=== PATIENT | male | born 1960 | race Caucasian/White ===

== ENCOUNTER 2016-09-13 08:23 | Inpatient (IN) | payer OTHER ==
[2016-09-13 08:43] LABS: Basophils % (Auto) 0.3 % (0.0-1.8); Eosinophils % (Auto) 0.4 % (0.0-4.3); Hematocrit 41.3 % (35.5-45.6); Hemoglobin 12.9 gm/dl (11.8-15.2); Mean Corpuscular HGB Conc 31 % (32-34); Mean Corpuscular Volume 73 fl (84-94); Platelet Count 313 K/mm3 (140-440); Red Blood Count 5.68 M/mm3 (3.65-5.03); Red Cell Distribution Width 17.6 % (13.2-15.2); White Blood Count 8.7 K/mm3 (4.5-11.0)
--- NOTE | 2016-09-13 08:45 | Cat Scan Report ---
HEAD CT WITHOUT CONTRAST INDICATION: Neurologic deficits less than 6 hours or symptoms present upon awakening. 98N. COMPARISON: None similar at this institution. FINDINGS: Noncontrast head CT demonstrates symmetric, age-appropriate ventricles and sulci without definite acute infarct, hemorrhage, mass effect or midline shift. Mild periventricular hypodensities. Few white matter ischemic changes in the right frontal lobe extending into the centrum semiovale favored old. No abnormal extra-axial fluid collections. Posterior fossa structures and basilar cisterns are within normal limits. Mild bilateral ethmoid sinusitis. Slight right sphenoid sinus mucosal thickening anteriorly. Clear remainder imaged paranasal sinuses and mastoid air cells. Atherosclerotic ICA calcifications. Few radiopaque dental material and missing teeth. Cervical spondylosis. Intact calvarium. Normal scalp soft tissues. CONCLUSION: No acute intracranial CT abnormality with few other findings, as above. MRI is more sensitive for detection of acute infarct and may be useful for further evaluation in the setting of a focal neurologic deficit. I phoned the above results to Dr. Briceño in the ER, 8:42 AM, 09/13/2016. Thank you for the opportunity to participate in this patient's care.
[2016-09-13 08:51] LABS: Anion Gap 21 mmol/L; Blood Urea Nitrogen 20 mg/dL (9-20); Calcium 9.2 mg/dL (8.4-10.2); Carbon Dioxide 22 mmol/L (22-30); Chloride 100.5 mmol/L (98-107); Glucose 90 mg/dL (75-100); Potassium 3.9 mmol/L (3.6-5.0); Sodium 140 mmol/L (137-145)
[2016-09-13 08:55] LABS: INR 1.04 (0.87-1.13); Mean Corpuscular Hemoglobin 23 pg (28-32); Partial Thromboplastin Time 24.9 Sec. (24.2-36.6)
[2016-09-13] MEDS ORDERED: APRESOLINE IV ONE (09:12)
--- NOTE | 2016-09-13 09:47 | Emergency Department Report ---
ED Neuro Deficit HPI - General Chief Complaint: Neuro Symptoms/Deficit Stated Complaint: POSSIBLE CVA Time Seen by Provider: 09/13/16 08:42 Source: patient, EMS Mode of arrival: Stretcher Limitations: Physical Limitation - History of Present Illness -: Gradual Location: speech, left arm Presenting Symptoms: Present: Weak/Paralyzed One Side History of same: Yes Place: home Severity: severe Quality: weak Improves With: none Worsens With: none On Anticoagulants: No Context: gradual onset Associated Symptoms: denies other symptoms Treatments Prior to Arrival: none - Related Data Home Medications: Home Medications Medication Instructions Recorded Confirmed Last Taken Aspirin [Aspirin BABY CHEW TAB] 81 mg PO QDAY 09/13/16 09/13/16 Unknown Olmesartan (Nf) [Benicar (Nf)] 5 mg PO QDAY 09/13/16 09/13/16 Unknown Allergies/Adverse Reactions: Allergies Allergy/AdvReac Type Severity Reaction Status Date / Time No Known Allergies Allergy Verified 09/13/16 09:38 ED Review of Systems ROS: Stated complaint: POSSIBLE CVA Other details as noted in HPI Comment: All other systems reviewed and negative Constitutional: no symptoms reported Neurological: weakness (left sided) ED Past Medical Hx - Past Medical History Hx Hypertension: Yes - Social History Smoking Status: Unknown if ever smoked - Medications Home Medications: Home Medications Medication Instructions Recorded Confirmed Last Taken Type Aspirin [Aspirin BABY CHEW TAB] 81 mg PO QDAY 09/13/16 09/13/16 Unknown History Olmesartan (Nf) [Benicar (Nf)] 5 mg PO QDAY 09/13/16 09/13/16 Unknown History ED Neuro Physical Exam - General Limitations: Physical Limitation Suspected Stroke: Yes - Head Head exam: Present: atraumatic - Eye Eye exam: Present: normal appearance Pupils: Present: normal accommodation - ENT ENT exam: Present: normal exam - Neck Neck exam: Present: normal inspection - Cardiovascular Cardiovascular Exam: Present: regular rate - GI/Abdominal GI/Abdominal exam: Present: soft - Neurological Exam Neurological exam: Present: other (left-sided weakness) - NIHSS Assessment Interval: Baseline 1a. Level of Consciousness: alert 1b. LOC Questions: answers correctly 1c. LOC Commands: performs tasks correctly 2. Best Gaze: normal 3. Visual: no visual loss 4. Facial Palsy: normal symmetrical movement 5b. Motor Arm Right: no drift 5a. Motor Arm Left: drift 6a. Motor Leg Left: drift 6b. Motor Leg Right: no drift 7. Limb Ataxia: absent 8. Sensory: normal 9. Best Language: no aphasia 10. Dysarthria: normal 11. Extinction/Inattention: no abnormality Total Score: 2 Stroke Severity: Minor Stroke - Psychiatric Psychiatric exam: Present: normal affect ED Course Vital Signs 09/13/16 09/13/16 09/13/16 08:38 08:48 08:49 Temperature Pulse Rate 88 Respiratory 22 22 Rate Blood Pressure 240/120 Blood Pressure 228/115 [Right] O2 Sat by Pulse Oximetry 09/13/16 09/13/16 09/13/16 09:08 09:15 09:54 Temperature 98.1 F Pulse Rate 92 H 86 92 H Respiratory 24 20 Rate Blood Pressure 208/118 Blood Pressure 246/122 168/82 [Right] O2 Sat by Pulse 100 100 Oximetry - Lab Data Result diagrams: 09/13/16 08:20 09/13/16 08:20 Lab Results 09/13/16 09/13/16 09/13/16 Range/Units 08:20 08:20 08:20 WBC 8.7 (4.5-11.0) K/mm3 RBC 5.68 H (3.65-5.03) M/mm3 Hgb 12.9 (11.8-15.2) gm/dl Hct 41.3 (35.5-45.6) % MCV 73 L (84-94) fl MCH 23 L (28-32) pg MCHC 31 L (32-34) % RDW 17.6 H (13.2-15.2) % Plt Count 313 (140-440) K/mm3 Lymph % (Auto) 8.9 L (13.4-35.0) % [place] % (Auto) 6.2 (0.0-7.3) % Eos % (Auto) 0.4 (0.0-4.3) % Baso % (Auto) 0.3 (0.0-1.8) % Lymph # 0.8 L (1.2-5.4) K/mm3 [place] # 0.5 (0.0-0.8) K/mm3 Eos # 0.0 (0.0-0.4) K/mm3 Baso # 0.0 (0.0-0.1) K/mm3 Seg Neutrophils % 84.2 H (40.0-70.0) % Seg Neutrophils # 7.3 (1.8-7.7) K/mm3 PT 13.5 (12.2-14.9) Sec. INR 1.04 (0.87-1.13) APTT 24.9 (24.2-36.6) Sec. Thrombin Time (15.1-19.6) Sec. Sodium 140 (137-145) mmol/L Potassium 3.9 (3.6-5.0) mmol/L Chloride 100.5 (98-107) mmol/L Carbon Dioxide 22 (22-30) mmol/L Anion Gap 21 mmol/L BUN 20 (9-20) mg/dL Creatinine 1.0 (0.8-1.5) mg/dL Estimated GFR > 60 ml/min BUN/Creatinine Ratio 20.00 % Glucose 90 (75-100) mg/dL POC Glucose (70-105) Calcium 9.2 (8.4-10.2) mg/dL Troponin T < 0.010 (0.00-0.029) ng/mL 09/13/16 09/13/16 Range/Units 08:20 08:43 WBC (4.5-11.0) K/mm3 RBC (3.65-5.03) M/mm3 Hgb (11.8-15.2) gm/dl Hct (35.5-45.6) % MCV (84-94) fl MCH (28-32) pg MCHC (32-34) % RDW (13.2-15.2) % Plt Count (140-440) K/mm3 Lymph % (Auto) (13.4-35.0) % [place] % (Auto) (0.0-7.3) % Eos % (Auto) (0.0-4.3) % Baso % (Auto) (0.0-1.8) % Lymph # (1.2-5.4) K/mm3 [place] # (0.0-0.8) K/mm3 Eos # (0.0-0.4) K/mm3 Baso # (0.0-0.1) K/mm3 Seg Neutrophils % (40.0-70.0) % Seg Neutrophils # (1.8-7.7) K/mm3 PT (12.2-14.9) Sec. INR (0.87-1.13) APTT (24.2-36.6) Sec. Thrombin Time 15.3 (15.1-19.6) Sec. Sodium (137-145) mmol/L Potassium (3.6-5.0) mmol/L Chloride (98-107) mmol/L Carbon Dioxide (22-30) mmol/L Anion Gap mmol/L BUN (9-20) mg/dL Creatinine (0.8-1.5) mg/dL Estimated GFR ml/min BUN/Creatinine Ratio % Glucose (75-100) mg/dL POC Glucose 96 (70-105) Calcium (8.4-10.2) mg/dL Troponin T (0.00-0.029) ng/mL Critical care attestation.: If time is entered above; I have spent that time in minutes in the direct care of this critically ill patient, excluding procedure time. ED Disposition Clinical Impression: CVA (cerebral vascular accident) Disposition: DC-09 OP ADMIT IP TO THIS HOSP Is pt being admited?: Yes Does the pt Need Aspirin: No Condition: Stable
--- NOTE | 2016-09-13 09:48 | Admit Criteria Form ---
Admission Criteria Documentation: STROKE: ISCHEMIC Clinical Indications for Admission to Inpatient Care (Place 'X' for any and all applicable criteria): Admission is indicated for ANY ONE of the following(1)(2)(3)(4): [X]I. Acute stroke Extended stay beyond goal length of stay may be needed for(1)(2) [ ]a) Major deficit or clinical deterioration [ ]b) Hospital-acquired infection (eg, urinary tract infection, pneumonia) [ ]c) Embolic cause of stroke [ ]d) Venous thromboembolism(9) [ ]e) Seizures [ ]f) Bleeding (eg, cerebral) [ ]g) Increased intracranial pressure [ ]h) Comorbidities [ ]i) Surgical intervention The original [facility] content created by [employer] has been revised. The portions of the content which have been revised are identified through the use of italic text or in bold, and [facility] has neither reviewed nor approved the modified material. All other unmodified content is copyright [facility]. Please see references footnoted in the original [facility] edition 2016 Admission Criteria Met: Yes
--- NOTE | 2016-09-13 09:48 | History and Physical Report ---
<VIRGINIA SANTOS - Last Filed: 09/13/16 14:20> History of Present Illness Date of examination: 09/13/16 Date of admission: Chief complaint: difficulty of speech History of present illness: Patient is a 56 years old -[place] male with past medical history hypertension, CVA, diabetes mellitus GERD and CABG in [place] February 2016 who presents to the emergency department by EMS for code stroke. Upon my exam patient was alert with clear speech oriented to person place and follows commands. Patient stated that when he wake up this morning he was not able to speak clearly and he has found himself mumbling. Patient got worried and called 911 and they brought him for stroke evaluation. Patient is somewhat poor historian, I was not able to obtained further present illness history. Past History Past Medical History: diabetes, hypertension, other (CVA, ) Past Surgical History: CABG (February 2016) Social history: Lives alone Family history: CAD, hypertension Medications and Allergies Allergies Allergy/AdvReac Type Severity Reaction Status Date / Time No Known Allergies Allergy Verified 09/13/16 09:38 Home Medications Medication Instructions Recorded Confirmed Last Taken Type Aspirin [Aspirin BABY CHEW TAB] 81 mg PO QDAY 09/13/16 09/13/16 Unknown History Olmesartan (Nf) [Benicar (Nf)] 5 mg PO QDAY 09/13/16 09/13/16 Unknown History Active Meds: Active Medications Acetaminophen (Tylenol) 650 mg PO Q4H PRN PRN Reason: Pain MILD(1-3)/Fever >100.5/TAYLOR Bisacodyl (Dulcolax) 10 mg CO QDAY PRN PRN Reason: Constipation unrelieved by MOM Enoxaparin Sodium (Lovenox) 30 mg SUB-Q QDAY JULIO Hydralazine HCl (Apresoline) 20 mg IV Q4H PRN PRN Reason: Blood Pressure Miscellaneous Medication (Olmesartan (Nf)) 5 mg PO QDAY JULIO Ondansetron HCl (Zofran) 4 mg IV Q8H PRN PRN Reason: N/V unrelieved by Reglan Review of Systems Constitutional: no weight loss, no weight gain, no fever Ears, nose, mouth and throat: no ear pain, no ear discharge, no tinnitis, no nose pain Cardiovascular: no chest pain, no orthopnea, no palpitations, no rapid/ irregular heart beat Respiratory: no cough, no cough with sputum, no excessive sputum Gastrointestinal: no abdominal pain, no nausea, no vomiting Genitourinary Male: no hematuria, no flank pain, no discharge Rectal: no pain, no incontinence Musculoskeletal: no shooting arm pain, no arm numbness/tingling Integumentary: no rash, no pruritis, no redness, no sores Neurological: change in speech, no numbness, no tingling, no seizures, no syncope, no tremors Psychiatric: no anxiety, no memory loss, no change in sleep habits, no sleep disturbances Endocrine: no cold intolerance, no heat intolerance, no excessive thirst Hematologic/Lymphatic: no easy bruising, no easy bleeding Allergic/Immunologic: no urticaria, no allergic rhinitis, no wheezing Exam - Constitutional Vitals: Temp Pulse Resp BP Pulse Ox 98.1 F 86 24 208/118 100 09/13/16 09:08 09/13/16 09:15 09/13/16 09:08 09/13/16 09:15 09/13/16 09:08 General appearance: Present: other (alert and oriented isX3) - EENT Eyes: Present: PERRL ENT: hearing intact - Neck Neck: Present: supple - Respiratory Respiratory effort: normal Respiratory: bilateral: CTA - Cardiovascular Heart rate: 88 Rhythm: regular Heart Sounds: Present: S1 & S2 - Extremities Extremities: No edema Peripheral Pulses: within normal limits - Abdominal General gastrointestinal: Present: soft, non-tender Male genitourinary: Present: deferred - Rectal Rectal Exam: deferred - Integumentary Integumentary: Present: clear, warm, dry - Musculoskeletal Musculoskeletal: right sided weakness - Psychiatric Psychiatric: appropriate mood/affect - Neurologic Neurologic: CNII-XII intact - Allied Health Allied health notes reviewed: nursing Results - Labs CBC & Chem 7: 09/13/16 08:20 09/13/16 08:20 Labs: Laboratory Last Values WBC 8.7 K/mm3 (4.5-11.0) 09/13/16 08:20 RBC 5.68 M/mm3 (3.65-5.03) H 09/13/16 08:20 Hgb 12.9 gm/dl (11.8-15.2) 09/13/16 08:20 Hct 41.3 % (35.5-45.6) 09/13/16 08:20 MCV 73 fl (84-94) L 09/13/16 08:20 MCH 23 pg (28-32) L 09/13/16 08:20 MCHC 31 % (32-34) L 09/13/16 08:20 RDW 17.6 % (13.2-15.2) H 09/13/16 08:20 Plt Count 313 K/mm3 (140-440) 09/13/16 08:20 Lymph % (Auto) 8.9 % (13.4-35.0) L 09/13/16 08:20 [place] % (Auto) 6.2 % (0.0-7.3) 09/13/16 08:20 Eos % (Auto) 0.4 % (0.0-4.3) 09/13/16 08:20 Baso % (Auto) 0.3 % (0.0-1.8) 09/13/16 08:20 Lymph # 0.8 K/mm3 (1.2-5.4) L 09/13/16 08:20 [place] # 0.5 K/mm3 (0.0-0.8) 09/13/16 08:20 Eos # 0.0 K/mm3 (0.0-0.4) 09/13/16 08:20 Baso # 0.0 K/mm3 (0.0-0.1) 09/13/16 08:20 Seg Neutrophils % 84.2 % (40.0-70.0) H 09/13/16 08:20 Seg Neutrophils # 7.3 K/mm3 (1.8-7.7) 09/13/16 08:20 PT 13.5 Sec. (12.2-14.9) 09/13/16 08:20 INR 1.04 (0.87-1.13) 09/13/16 08:20 APTT 24.9 Sec. (24.2-36.6) 09/13/16 08:20 Thrombin Time 15.3 Sec. (15.1-19.6) 09/13/16 08:20 Sodium 140 mmol/L (137-145) 09/13/16 08:20 Potassium 3.9 mmol/L (3.6-5.0) 09/13/16 08:20 Chloride 100.5 mmol/L (98-107) 09/13/16 08:20 Carbon Dioxide 22 mmol/L (22-30) 09/13/16 08:20 Anion Gap 21 mmol/L 09/13/16 08:20 BUN 20 mg/dL (9-20) 09/13/16 08:20 Creatinine 1.0 mg/dL (0.8-1.5) 09/13/16 08:20 Estimated GFR > 60 ml/min 09/13/16 08:20 BUN/Creatinine Ratio 20.00 % 09/13/16 08:20 Glucose 90 mg/dL (75-100) 09/13/16 08:20 Calcium 9.2 mg/dL (8.4-10.2) 09/13/16 08:20 Troponin T < 0.010 ng/mL (0.00-0.029) 09/13/16 08:20 Assessment and Plan Assessment and plan: ASSESSMENT/PLAN Cerebrovascular accident (CVA) we will admit to telemetry floor CT of the brain shows left White matter changes per Tele neurologist We will get MRI of the brain and MRA of the neck. Started on aspirin 325 and Rovastatin 80mg Complete lipid panel ordred Physical therapy ordered Occupational therapy ordered Swallow evaluation Neurology Dr. Bess input appreciate Hypertension We will resume home on the hypertensive pillis IV hydralazine for SBP >160 Closely monitor blood pressure Hyperlipidemia Elevated cholesterol 254mg/dL and 178mg/dL LDL Started on Statin's Discussed with the patient about the importance of low fat diet, physical execrsie, reducing intake of high fat foods to improve cardiovascular diseases. DVT prophylaxis Lovenox Started <VIKTOR REYES - Last Filed: 09/13/16 14:36> History of Present Illness Date of admission: 09/13/16 09:34 Past History Past Medical History: diabetes, hypertension, other Past Surgical History: CABG Family history: CAD Medications and Allergies Active Meds: Active Medications Acetaminophen (Tylenol) 650 mg PO Q4H PRN PRN Reason: Pain MILD(1-3)/Fever >100.5/TAYLOR Aspirin (Aspirin) 325 mg PO DAILY [facility] Last Admin: 09/13/16 10:27 Dose: 325 mg Atorvastatin Calcium (Lipitor) 80 mg PO QHS [facility] Bisacodyl (Dulcolax) 10 mg CO QDAY PRN PRN Reason: Constipation unrelieved by MOM Enoxaparin Sodium (Lovenox) 40 mg SUB-Q QDAY@1000 JULIO Hydralazine HCl (Apresoline) 20 mg IV Q4H PRN PRN Reason: Blood Pressure Lorazepam (Ativan) 1 mg IV Q4H PRN PRN Reason: Agitation Losartan Potassium (Cozaar) 25 mg PO QDAY JULIO Ondansetron HCl (Zofran) 4 mg IV Q8H PRN PRN Reason: N/V unrelieved by Reglan Exam - Constitutional Vitals: Temp Pulse Resp BP Pulse Ox 98.1 F 92 H 16 168/82 99 09/13/16 09:08 09/13/16 09:54 09/13/16 13:34 09/13/16 09:54 09/13/16 13:34 Results - Labs CBC & Chem 7: 09/13/16 08:20 09/13/16 08:20 Labs: Laboratory Last Values WBC 8.7 K/mm3 (4.5-11.0) 09/13/16 08:20 RBC 5.68 M/mm3 (3.65-5.03) H 09/13/16 08:20 Hgb 12.9 gm/dl (11.8-15.2) 09/13/16 08:20 Hct 41.3 % (35.5-45.6) 09/13/16 08:20 MCV 73 fl (84-94) L 09/13/16 08:20 MCH 23 pg (28-32) L 09/13/16 08:20 MCHC 31 % (32-34) L 09/13/16 08:20 RDW 17.6 % (13.2-15.2) H 09/13/16 08:20 Plt Count 313 K/mm3 (140-440) 09/13/16 08:20 Lymph % (Auto) 8.9 % (13.4-35.0) L 09/13/16 08:20 [place] % (Auto) 6.2 % (0.0-7.3) 09/13/16 08:20 Eos % (Auto) 0.4 % (0.0-4.3) 09/13/16 08:20 Baso % (Auto) 0.3 % (0.0-1.8) 09/13/16 08:20 Lymph # 0.8 K/mm3 (1.2-5.4) L 09/13/16 08:20 [place] # 0.5 K/mm3 (0.0-0.8) 09/13/16 08:20 Eos # 0.0 K/mm3 (0.0-0.4) 09/13/16 08:20 Baso # 0.0 K/mm3 (0.0-0.1) 09/13/16 08:20 Seg Neutrophils % 84.2 % (40.0-70.0) H 09/13/16 08:20 Seg Neutrophils # 7.3 K/mm3 (1.8-7.7) 09/13/16 08:20 PT 13.5 Sec. (12.2-14.9) 09/13/16 08:20 INR 1.04 (0.87-1.13) 09/13/16 08:20 APTT 24.9 Sec. (24.2-36.6) 09/13/16 08:20 Thrombin Time 15.3 Sec. (15.1-19.6) 09/13/16 08:20 Sodium 140 mmol/L (137-145) 09/13/16 08:20 Potassium 3.9 mmol/L (3.6-5.0) 09/13/16 08:20 Chloride 100.5 mmol/L (98-107) 09/13/16 08:20 Carbon Dioxide 22 mmol/L (22-30) 09/13/16 08:20 Anion Gap 21 mmol/L 09/13/16 08:20 BUN 20 mg/dL (9-20) 09/13/16 08:20 Creatinine 1.0 mg/dL (0.8-1.5) 09/13/16 08:20 Estimated GFR > 60 ml/min 09/13/16 08:20 BUN/Creatinine Ratio 20.00 % 09/13/16 08:20 Glucose 90 mg/dL (75-100) 09/13/16 08:20 POC Glucose 96 (70-105) 09/13/16 08:43 Calcium 9.2 mg/dL (8.4-10.2) 09/13/16 08:20 Troponin T < 0.010 ng/mL (0.00-0.029) 09/13/16 08:20 Triglycerides 94 mg/dL (2-149) 09/13/16 08:41 Cholesterol 254 mg/dL (50-199) H 09/13/16 08:41 LDL Cholesterol Direct 178 mg/dL (50-130) H 09/13/16 08:41 HDL Cholesterol 58 mg/dL (40-59) 09/13/16 08:41 Cholesterol/HDL Ratio 4.37 % 09/13/16 08:41 Assessment and Plan Assessment and plan: I saw and evaluated the patient. I agree with the findings and the plan of care as documented in the Nurse Practitioner's~note, with the following corrections and additions. Patient is awake and alert but appears confused. Offers no complaints. He denies any chest pain , headache or shortness of breath history and physical as per mid level nurse practitioner note Assessment: Acute stroke: CT of the head findings reviewed MR I of the brain and MRA of the neck was ordered However this was not done as the patient was agitated and restless in spite of giving intravenous Ativan Neurology consult with Dr. Bess was requested This is pending at this time Continue when necessary Ativan PT and OT consult Speech therapy consult Continue Plavix Urinary retention: It's unknown if patient has history of BPH Have ordered one time straight catheter and urine be sent for UA if there is retention again we will leave the Kendrick catheter in and request urology consult Hyperlipidemia: Continue statin high-dose Hypertension: We will keep the blood pressure high for permissive hypertension. Start on low-dose ARB Type 2 diabetes: Continue sliding-scale coverage
[2016-09-13] MEDS ORDERED: OLMESARTAN 5 MG PO SCH (10:00)
[2016-09-13] MEDS ORDERED: LOVENOX SUB-Q SCH (10:00)
[2016-09-13] MEDS: ASPIRIN PO SCH (10:27)
[2016-09-13] MEDS ORDERED: ATIVAN IV ONE (13:00)
[2016-09-13] MEDS ORDERED: COZAAR PO SCH (14:00)
[2016-09-13] MEDS: APRESOLINE IV PRN ×2 (18:14→22:48)
[2016-09-13] MEDS: ATIVAN IV PRN (22:49)
[2016-09-14] MEDS: ATIVAN IV PRN ×2 (03:05→15:24)
[2016-09-14] MEDS: APRESOLINE IV PRN ×2 (06:53→13:52)
[2016-09-14 09:00] LABS: Anion Gap 24 mmol/L; BUN/Creatinine Ratio 28.75; Blood Urea Nitrogen 23 mg/dL (9-20); Calcium 9.5 mg/dL (8.4-10.2); Carbon Dioxide 21 mmol/L (22-30); Chloride 104.8 mmol/L (98-107); Glucose 138 mg/dL (75-100); Sodium 146 mmol/L (137-145)
[2016-09-14] MEDS: PROCARDIA XL PO SCH ×2 (10:49→22:21)
[2016-09-14] MEDS: ASPIRIN PO SCH (10:49)
[2016-09-14] MEDS: COZAAR PO SCH (10:49)
[2016-09-14] MEDS: LOVENOX SUB-Q SCH (13:51)
[2016-09-14] MEDS: APRESOLINE PO SCH ×2 (14:50→22:21)
--- NOTE | 2016-09-14 18:55 | Progress Note ---
Assessment and Plan Assessment and plan: --Acute CVA Not a candidate for TPA, continue to work up MRI/MRA Neurology following, physical therapy occupational therapy rehabilitation Antiplatelets and statins --Urinary retention; recatheterization and bladder training --Dyslipidemia continue lipid-lowering medications --Hypertension; uncontrolled Permissive hypertension, per stroke protocol .continue current antihypertensives and when necessary medications --DVT prophylaxis; Lovenox Closely monitor the patient and adjust management as needed History Interval history: Patient seen and evaluated medical records reviewed No new events reported by the nursing staff Admitted with CVA like symptoms. Neuro workup is in progress Hospitalist Physical - Constitutional Vitals: Temp Pulse Resp BP Pulse Ox 97.8 F 102 H 18 172/79 98 09/14/16 15:25 09/14/16 16:45 09/14/16 15:25 09/14/16 15:25 09/14/16 15:25 General appearance: Present: no acute distress, well-nourished, other (alert and oriented isX3) - EENT Eyes: Present: PERRL, EOM intact - Neck Neck: Present: supple, normal ROM - Respiratory Respiratory effort: normal Respiratory: negative: rales, rhonchi, wheezing - Cardiovascular Rhythm: regular Heart Sounds: Present: S1 & S2 - Extremities Extremities: no ischemia, No edema - Abdominal General gastrointestinal: soft, non-tender, non-distended, normal bowel sounds - Integumentary Integumentary: Present: clear, warm - Psychiatric Psychiatric: appropriate mood/affect, cooperative - Neurologic Neurologic: moves all extremities Results - Labs CBC & Chem 7: 09/13/16 08:20 09/14/16 08:13 Labs: Laboratory Last Values WBC 8.7 K/mm3 (4.5-11.0) 09/13/16 08:20 RBC 5.68 M/mm3 (3.65-5.03) H 09/13/16 08:20 Hgb 12.9 gm/dl (11.8-15.2) 09/13/16 08:20 Hct 41.3 % (35.5-45.6) 09/13/16 08:20 MCV 73 fl (84-94) L 09/13/16 08:20 MCH 23 pg (28-32) L 09/13/16 08:20 MCHC 31 % (32-34) L 09/13/16 08:20 RDW 17.6 % (13.2-15.2) H 09/13/16 08:20 Plt Count 313 K/mm3 (140-440) 09/13/16 08:20 Lymph % (Auto) 8.9 % (13.4-35.0) L 09/13/16 08:20 [place] % (Auto) 6.2 % (0.0-7.3) 09/13/16 08:20 Eos % (Auto) 0.4 % (0.0-4.3) 09/13/16 08:20 Baso % (Auto) 0.3 % (0.0-1.8) 09/13/16 08:20 Lymph # 0.8 K/mm3 (1.2-5.4) L 09/13/16 08:20 [place] # 0.5 K/mm3 (0.0-0.8) 09/13/16 08:20 Eos # 0.0 K/mm3 (0.0-0.4) 09/13/16 08:20 Baso # 0.0 K/mm3 (0.0-0.1) 09/13/16 08:20 Seg Neutrophils % 84.2 % (40.0-70.0) H 09/13/16 08:20 Seg Neutrophils # 7.3 K/mm3 (1.8-7.7) 09/13/16 08:20 PT 13.5 Sec. (12.2-14.9) 09/13/16 08:20 INR 1.04 (0.87-1.13) 09/13/16 08:20 APTT 24.9 Sec. (24.2-36.6) 09/13/16 08:20 Thrombin Time 15.3 Sec. (15.1-19.6) 09/13/16 08:20 Sodium 146 mmol/L (137-145) H 09/14/16 08:13 Potassium 4.0 mmol/L (3.6-5.0) 09/14/16 08:13 Chloride 104.8 mmol/L (98-107) 09/14/16 08:13 Carbon Dioxide 21 mmol/L (22-30) L 09/14/16 08:13 Anion Gap 24 mmol/L 09/14/16 08:13 BUN 23 mg/dL (9-20) H 09/14/16 08:13 Creatinine 0.8 mg/dL (0.8-1.5) 09/14/16 08:13 Estimated GFR > 60 ml/min 09/14/16 08:13 BUN/Creatinine Ratio 28.75 % 09/14/16 08:13 Glucose 138 mg/dL (75-100) H 09/14/16 08:13 POC Glucose 124 (70-105) H 09/14/16 09:04 Calcium 9.5 mg/dL (8.4-10.2) 09/14/16 08:13 Troponin T < 0.010 ng/mL (0.00-0.029) 09/13/16 08:20 Triglycerides 94 mg/dL (2-149) 09/13/16 08:41 Cholesterol 254 mg/dL (50-199) H 09/13/16 08:41 LDL Cholesterol Direct 178 mg/dL (50-130) H 09/13/16 08:41 HDL Cholesterol 58 mg/dL (40-59) 09/13/16 08:41 Cholesterol/HDL Ratio 4.37 % 09/13/16 08:41
[2016-09-14] MEDS ORDERED: HALDOL IM ONE (22:07)
[2016-09-15] MEDS: APRESOLINE IV PRN (05:03)
[2016-09-15] MEDS: APRESOLINE PO SCH ×3 (05:03→21:23)
[2016-09-15] MEDS: ASPIRIN PO SCH (16:21)
[2016-09-15] MEDS: LOVENOX SUB-Q SCH (16:21)
[2016-09-15] MEDS: TYLENOL PO PRN (16:22)
[2016-09-15] MEDS: PROCARDIA XL PO SCH ×2 (16:22→21:24)
[2016-09-15] MEDS: COZAAR PO SCH (16:23)
--- NOTE | 2016-09-15 19:19 | Progress Note ---
Assessment and Plan Assessment and plan: --Agitation; patient is unable to sedate for MRI/MRA Consider short general anesthesia if possible --Acute CVA Not a candidate for TPA, continue to work up MRI/MRA Neurology following, physical therapy occupational therapy rehabilitation Antiplatelets and statins --Urinary retention; recatheterization and bladder training --Dyslipidemia continue lipid-lowering medications --Hypertension; uncontrolled Permissive hypertension, per stroke protocol .continue current antihypertensives and when necessary medications --DVT prophylaxis; Lovenox --Discharge Planning.; Case management; possible subacute rehabilitation Closely monitor the patient and adjust management as needed History Interval history: Patient seen and evaluated medical records reviewed Patient is minimally communicative, unable to sedate for MRI Recheck with anesthesiologist/neurologist for possible short anesthesia for MRI Vital signs stable Hospitalist Physical - Constitutional Vitals: Temp Pulse Resp BP Pulse Ox 99.1 F 96 H 18 190/94 98 09/15/16 16:00 09/15/16 16:00 09/15/16 16:00 09/15/16 16:00 09/15/16 10:00 General appearance: Present: no acute distress, well-nourished, other (alert and oriented isX3) - EENT Eyes: Present: PERRL, EOM intact - Neck Neck: Present: supple, normal ROM - Respiratory Respiratory effort: normal Respiratory: negative: rales, rhonchi, wheezing - Cardiovascular Rhythm: regular Heart Sounds: Present: S1 & S2 - Extremities Extremities: no ischemia, No edema - Abdominal General gastrointestinal: soft, non-tender, non-distended, normal bowel sounds - Integumentary Integumentary: Present: clear, warm - Psychiatric Psychiatric: other (minimally communicative) - Neurologic Neurologic: other (dysarthria and residual weakness) Results - Labs CBC & Chem 7: 09/13/16 08:20 09/14/16 08:13 Labs: Laboratory Last Values WBC 8.7 K/mm3 (4.5-11.0) 09/13/16 08:20 RBC 5.68 M/mm3 (3.65-5.03) H 09/13/16 08:20 Hgb 12.9 gm/dl (11.8-15.2) 09/13/16 08:20 Hct 41.3 % (35.5-45.6) 09/13/16 08:20 MCV 73 fl (84-94) L 09/13/16 08:20 MCH 23 pg (28-32) L 09/13/16 08:20 MCHC 31 % (32-34) L 09/13/16 08:20 RDW 17.6 % (13.2-15.2) H 09/13/16 08:20 Plt Count 313 K/mm3 (140-440) 09/13/16 08:20 Lymph % (Auto) 8.9 % (13.4-35.0) L 09/13/16 08:20 Robertson % (Auto) 6.2 % (0.0-7.3) 09/13/16 08:20 Eos % (Auto) 0.4 % (0.0-4.3) 09/13/16 08:20 Baso % (Auto) 0.3 % (0.0-1.8) 09/13/16 08:20 Lymph # 0.8 K/mm3 (1.2-5.4) L 09/13/16 08:20 Robertson # 0.5 K/mm3 (0.0-0.8) 09/13/16 08:20 Eos # 0.0 K/mm3 (0.0-0.4) 09/13/16 08:20 Baso # 0.0 K/mm3 (0.0-0.1) 09/13/16 08:20 Seg Neutrophils % 84.2 % (40.0-70.0) H 09/13/16 08:20 Seg Neutrophils # 7.3 K/mm3 (1.8-7.7) 09/13/16 08:20 PT 13.5 Sec. (12.2-14.9) 09/13/16 08:20 INR 1.04 (0.87-1.13) 09/13/16 08:20 APTT 24.9 Sec. (24.2-36.6) 09/13/16 08:20 Thrombin Time 15.3 Sec. (15.1-19.6) 09/13/16 08:20 Sodium 146 mmol/L (137-145) H 09/14/16 08:13 Potassium 4.0 mmol/L (3.6-5.0) 09/14/16 08:13 Chloride 104.8 mmol/L (98-107) 09/14/16 08:13 Carbon Dioxide 21 mmol/L (22-30) L 09/14/16 08:13 Anion Gap 24 mmol/L 09/14/16 08:13 BUN 23 mg/dL (9-20) H 09/14/16 08:13 Creatinine 0.8 mg/dL (0.8-1.5) 09/14/16 08:13 Estimated GFR > 60 ml/min 09/14/16 08:13 BUN/Creatinine Ratio 28.75 % 09/14/16 08:13 Glucose 138 mg/dL (75-100) H 09/14/16 08:13 POC Glucose 124 (70-105) H 09/14/16 09:04 Calcium 9.5 mg/dL (8.4-10.2) 09/14/16 08:13 Troponin T < 0.010 ng/mL (0.00-0.029) 09/13/16 08:20 Triglycerides 94 mg/dL (2-149) 09/13/16 08:41 Cholesterol 254 mg/dL (50-199) H 09/13/16 08:41 LDL Cholesterol Direct 178 mg/dL (50-130) H 09/13/16 08:41 HDL Cholesterol 58 mg/dL (40-59) 09/13/16 08:41 Cholesterol/HDL Ratio 4.37 % 09/13/16 08:41
[2016-09-16] MEDS: APRESOLINE PO SCH ×3 (06:48→23:13)
[2016-09-16] MEDS: ATIVAN IV PRN ×2 (06:49→11:32)
[2016-09-16] MEDS: PROCARDIA XL PO SCH ×2 (11:31→23:13)
[2016-09-16] MEDS: COZAAR PO SCH (11:31)
[2016-09-16] MEDS: ASPIRIN PO SCH (11:31)
[2016-09-16] MEDS: LOVENOX SUB-Q SCH (11:32)
--- NOTE | 2016-09-16 12:33 | Anesthesia Consultation ---
Anesthesia Consult and Med Hx Date of service: 09/16/16 - Pre-Operative Health Status ASA Pre-Surgery Classification: ASA3 Proposed Anesthetic Plan: General - Pre-Anesthesia Comment Pre-Anesthesia Comments: Patient agitated, uanable to follow commands and hold still for MRI. Unable to assess airway. Telephone consent recieved from patients brotherYolis . - Cardiovascular System Hx Hypertension: Yes Hx Coronary Artery Disease: Yes (CABG 02/2016 ) - Central Nervous System CVA: Yes
[2016-09-16] MEDS: APRESOLINE IV PRN (16:57)
--- NOTE | 2016-09-16 19:17 | Progress Note ---
Assessment and Plan Assessment and plan: --Acute CVA Not a candidate for TPA, continue to work up MRI/MRA Neurology following, physical therapy occupational therapy rehabilitation Antiplatelets and statins --Agitation; patient is unable to sedate for MRI/MRA Consider short general anesthesia if possible Consulted anesthesiologist Dr.R. Blevins, conscious sedation during MRI tomorrow --Urinary retention; continues catheterization --Dyslipidemia continue lipid-lowering medications --Hypertension; uncontrolled Permissive hypertension, per stroke protocol .continue current antihypertensives and when necessary medications --DVT prophylaxis; Lovenox --Discharge Planning.; Case management; possible subacute rehabilitation Closely monitor the patient and adjust management as needed History Interval history: Patient seen and evaluated Minimally communicative, agitated Unable to get a modified secondary to severe agitation Hospitalist Physical - Constitutional Vitals: Temp Pulse Resp BP Pulse Ox 98.4 F 94 H 20 215/120 100 09/16/16 16:00 09/16/16 16:00 09/16/16 16:00 09/16/16 16:00 09/16/16 16:00 General appearance: Present: no acute distress, well-nourished, other (agitated , restless, restrained) - EENT Eyes: Present: PERRL, EOM intact - Neck Neck: Present: supple, normal ROM - Respiratory Respiratory effort: normal Respiratory: negative: rales, rhonchi, wheezing - Cardiovascular Rhythm: regular Heart Sounds: Present: S1 & S2 - Extremities Extremities: no ischemia, pulses intact Peripheral Pulses: within normal limits - Abdominal General gastrointestinal: soft, non-tender, non-distended, normal bowel sounds - Integumentary Integumentary: Present: clear, warm - Psychiatric Psychiatric: agitated - Neurologic Neurologic: other (left hemiparesis) Results - Labs CBC & Chem 7: 09/13/16 08:20 09/14/16 08:13 Labs: Laboratory Last Values WBC 8.7 K/mm3 (4.5-11.0) 09/13/16 08:20 RBC 5.68 M/mm3 (3.65-5.03) H 09/13/16 08:20 Hgb 12.9 gm/dl (11.8-15.2) 09/13/16 08:20 Hct 41.3 % (35.5-45.6) 09/13/16 08:20 MCV 73 fl (84-94) L 09/13/16 08:20 MCH 23 pg (28-32) L 09/13/16 08:20 MCHC 31 % (32-34) L 09/13/16 08:20 RDW 17.6 % (13.2-15.2) H 09/13/16 08:20 Plt Count 313 K/mm3 (140-440) 09/13/16 08:20 Lymph % (Auto) 8.9 % (13.4-35.0) L 09/13/16 08:20 [place] % (Auto) 6.2 % (0.0-7.3) 09/13/16 08:20 Eos % (Auto) 0.4 % (0.0-4.3) 09/13/16 08:20 Baso % (Auto) 0.3 % (0.0-1.8) 09/13/16 08:20 Lymph # 0.8 K/mm3 (1.2-5.4) L 09/13/16 08:20 [place] # 0.5 K/mm3 (0.0-0.8) 09/13/16 08:20 Eos # 0.0 K/mm3 (0.0-0.4) 09/13/16 08:20 Baso # 0.0 K/mm3 (0.0-0.1) 09/13/16 08:20 Seg Neutrophils % 84.2 % (40.0-70.0) H 09/13/16 08:20 Seg Neutrophils # 7.3 K/mm3 (1.8-7.7) 09/13/16 08:20 PT 13.5 Sec. (12.2-14.9) 09/13/16 08:20 INR 1.04 (0.87-1.13) 09/13/16 08:20 APTT 24.9 Sec. (24.2-36.6) 09/13/16 08:20 Thrombin Time 15.3 Sec. (15.1-19.6) 09/13/16 08:20 Sodium 146 mmol/L (137-145) H 09/14/16 08:13 Potassium 4.0 mmol/L (3.6-5.0) 09/14/16 08:13 Chloride 104.8 mmol/L (98-107) 09/14/16 08:13 Carbon Dioxide 21 mmol/L (22-30) L 09/14/16 08:13 Anion Gap 24 mmol/L 09/14/16 08:13 BUN 23 mg/dL (9-20) H 09/14/16 08:13 Creatinine 0.8 mg/dL (0.8-1.5) 09/14/16 08:13 Estimated GFR > 60 ml/min 09/14/16 08:13 BUN/Creatinine Ratio 28.75 % 09/14/16 08:13 Glucose 138 mg/dL (75-100) H 09/14/16 08:13 POC Glucose 124 (70-105) H 09/14/16 09:04 Calcium 9.5 mg/dL (8.4-10.2) 09/14/16 08:13 Troponin T < 0.010 ng/mL (0.00-0.029) 09/13/16 08:20 Triglycerides 94 mg/dL (2-149) 09/13/16 08:41 Cholesterol 254 mg/dL (50-199) H 09/13/16 08:41 LDL Cholesterol Direct 178 mg/dL (50-130) H 09/13/16 08:41 HDL Cholesterol 58 mg/dL (40-59) 09/13/16 08:41 Cholesterol/HDL Ratio 4.37 % 09/13/16 08:41
[2016-09-17] MEDS: APRESOLINE PO SCH ×3 (06:00→22:49)
[2016-09-17] MEDS ORDERED: DIPRIVAN 10 MG/ML IV ONE ×3 (07:48)
[2016-09-17] MEDS ORDERED: XYLOCAINE MPF 2% ONE (07:49)
[2016-09-17] MEDS ORDERED: VERSED IV ONE (07:49)
[2016-09-17] MEDS ORDERED: NACL 0.9% 1000 ML 1,000 ML ONE (08:36)
--- NOTE | 2016-09-17 09:39 | Magnetic Resonance Report ---
MRI BRAIN WITHOUT CONTRAST INDICATION: Acute CVA. COMPARISON: 09/13/[address] FINDINGS: Noncontrast multiplanar and multisequence MRI of the brain demonstrates acute right MCA and some possibly DAVID territory acute infarctions, most confluent involvement in the right centrum semiovale and brady radiata, in the greatest dimensions approximately 6.3 cm AP and 2.2 cm transverse as on diffusion images 25-27. Additional smaller adjacent focal extensions noted, an approximately 1.2 cm focus involving the right caudate nucleus and additional smaller right paramidline frontal foci of acute restricted diffusion as measuring 8 mm on axial diffusion image 18, amongst others. No acute hemorrhage, mass effect or midline shift. Few other small periventricular and white matter FLAIR and T2 weighted hyperintensities. No abnormal extra-axial masses or fluid collections. Normal major intracranial vascular flow voids. Approximately 7 mm left cerebellar lacunar infarct again noted. Symmetric seventh and eighth nerve complexes with preserved basilar cisterns. Normal eye globes. Mild bilateral ethmoid and maxillary sinusitis may be present. Nasal septal deviation. Normal midline structures without evidence of Chiari malformation. CONCLUSION: Right cerebral hemisphere acute/subacute infarctions involving the MCA and some possibly the right DAVID territories, as described. Thank you for the opportunity to participate in this patient's care.
[2016-09-17] MEDS: PROCARDIA XL PO SCH ×2 (10:14→22:49)
--- NOTE | 2016-09-17 10:22 | Post Anesthesia Evaluation ---
- Post Anesthesia Evaluation Patient Participated: Yes Airway Patent: Yes Stable Respiratory Function: Yes Nausea/Vomiting: No Temp > 96.8F: Yes Pain Manageable: Yes Adequeate Hydration: Yes Anesthesia Complications: No Block Receding Appropriately: Not Applicable Patient on Ventilator: No
--- NOTE | 2016-09-17 10:22 | Anesthesia Day of Surgery ---
Anesthesia Day of Surgery - Day of Surgery Patient Examined: Yes Patient H&P Reviewed: Yes Patient is NPO: Yes
--- NOTE | 2016-09-17 11:22 | Magnetic Resonance Report ---
MRA HEAD WITHOUT CONTRAST HISTORY: Stroke. [id number] imaging with MIP reformations of the [place] is submitted. Limited exam with moderate patient motion artifact. There is nonvisualization of most of the right anterior cerebral artery consistent with occlusion or partial thrombosis. This correlates with the infarct seen on MRI performed the same day. The remaining cerebral arteries are patent. Moderate bilateral posterior communicating arteries are identified. No aneurysm. IMPRESSION: Occlusion versus high-grade partial thrombosis of the right anterior cerebral artery.
[2016-09-17] MEDS: LOVENOX SUB-Q SCH (11:26)
[2016-09-17] MEDS: COZAAR PO SCH (11:26)
[2016-09-17] MEDS: ASPIRIN PO SCH (11:26)
[2016-09-17] MEDS: APRESOLINE IV PRN (11:27)
--- NOTE | 2016-09-17 16:52 | Consultation ---
History of Present Illness - Reason for Consult Consult date: 09/17/16 stroke - History of Present Illness see my dictated note on the MRI and MRA analysis I suspect this is caused by hypertensive disease as opposed to embolus prior history of extreme elevation in the blood pressure causing vessel disease plan see dictated note re rec's Past History Past Medical History: diabetes, hypertension, other Past Surgical History: CABG Social history: Lives alone Family history: CAD Medications and Allergies Allergies Allergy/AdvReac Type Severity Reaction Status Date / Time No Known Allergies Allergy Verified 09/13/16 09:38 Home Medications Medication Instructions Recorded Confirmed Last Taken Type Aspirin [Aspirin BABY CHEW TAB] 81 mg PO QDAY 09/13/16 09/13/16 Unknown History Olmesartan (Nf) [Benicar (Nf)] 5 mg PO QDAY 09/13/16 09/13/16 Unknown History Active Meds: Active Medications Acetaminophen (Tylenol) 650 mg PO Q4H PRN PRN Reason: Pain MILD(1-3)/Fever >100.5/TAYLOR Last Admin: 09/15/16 16:22 Dose: 650 mg Aspirin (Aspirin) 325 mg PO DAILY [facility] Last Admin: 09/17/16 11:26 Dose: 325 mg Atorvastatin Calcium (Lipitor) 80 mg PO QHS [facility] Last Admin: 09/16/16 23:14 Dose: 80 mg Bisacodyl (Dulcolax) 10 mg IA QDAY PRN PRN Reason: Constipation unrelieved by MOM Enoxaparin Sodium (Lovenox) 40 mg SUB-Q QDAY@1000 JULIO Last Admin: 09/17/16 11:26 Dose: 40 mg Hydralazine HCl (Apresoline) 20 mg IV Q4H PRN PRN Reason: Blood Pressure Last Admin: 09/17/16 11:27 Dose: 20 mg Hydralazine HCl (Apresoline) 50 mg PO Q8HR [facility] Last Admin: 09/17/16 15:40 Dose: 50 mg Lorazepam (Ativan) 1 mg IV Q4H PRN PRN Reason: Agitation Last Admin: 09/16/16 11:32 Dose: 1 mg Losartan Potassium (Cozaar) 25 mg PO QDAY [facility] Last Admin: 09/17/16 11:26 Dose: 25 mg Nifedipine (Procardia Xl) 30 mg PO Q12HR [facility] Last Admin: 09/17/16 10:14 Dose: 30 mg Ondansetron HCl (Zofran) 4 mg IV Q8H PRN PRN Reason: N/V unrelieved by Regsonam Exam - Constitutional Vitals: Temp Pulse Resp BP Pulse Ox 97.8 F 89 16 188/105 98 09/17/16 09:22 09/17/16 14:00 09/17/16 09:45 09/17/16 11:27 09/17/16 10:00 Results - Labs CBC & Chem 7: 09/13/16 08:20 09/14/16 08:13 Labs: Abnormal lab results 09/16/16 09/17/16 Range/Units 18:40 10:02 POC Glucose 135 H 119 H (70-105)
--- NOTE | 2016-09-17 16:53 | Progress Note ---
Assessment and Plan Assessment and plan: --Acute CVA/left hemiparesis Not a candidate for TPA, workup in progress Neurology following, physical therapy occupational therapy rehabilitation Antiplatelets and statins --Agitation; stable on medications--Urinary retention; continues catheterization --Dyslipidemia continue lipid-lowering medications --Hypertension; uncontrolled Permissive hypertension, per stroke protocol .continue current antihypertensives and when necessary medications --DVT prophylaxis; Lovenox --Discharge Planning.; Case management; possible subacute rehabilitation Closely monitor the patient and adjust management as needed Follow neurology evaluation and recommendations History Interval history: Patient seen and evaluated medical records reviewed Patient had MRI done under anesthesia, findings noted No new events reported by the nursing staff Patient is comfortable by the signs reviewed Hospitalist Physical - Constitutional Vitals: Temp Pulse Resp BP Pulse Ox 97.8 F 89 16 188/105 98 09/17/16 09:22 09/17/16 14:00 09/17/16 09:45 09/17/16 11:27 09/17/16 10:00 General appearance: Present: no acute distress, well-nourished, other - EENT Eyes: Present: PERRL, EOM intact - Neck Neck: Present: supple, normal ROM - Respiratory Respiratory effort: normal Respiratory: negative: diminished, rales, rhonchi - Cardiovascular Rhythm: regular Heart Sounds: Present: S1 & S2 - Extremities Extremities: no ischemia, No edema - Abdominal General gastrointestinal: soft, non-tender, non-distended, normal bowel sounds - Integumentary Integumentary: Present: clear, warm - Psychiatric Psychiatric: appropriate mood/affect, cooperative - Neurologic Neurologic: CNII-XII intact, moves all extremities Results - Labs CBC & Chem 7: 09/13/16 08:20 09/14/16 08:13 Labs: Laboratory Last Values WBC 8.7 K/mm3 (4.5-11.0) 09/13/16 08:20 RBC 5.68 M/mm3 (3.65-5.03) H 09/13/16 08:20 Hgb 12.9 gm/dl (11.8-15.2) 09/13/16 08:20 Hct 41.3 % (35.5-45.6) 09/13/16 08:20 MCV 73 fl (84-94) L 09/13/16 08:20 MCH 23 pg (28-32) L 09/13/16 08:20 MCHC 31 % (32-34) L 09/13/16 08:20 RDW 17.6 % (13.2-15.2) H 09/13/16 08:20 Plt Count 313 K/mm3 (140-440) 09/13/16 08:20 Lymph % (Auto) 8.9 % (13.4-35.0) L 09/13/16 08:20 [place] % (Auto) 6.2 % (0.0-7.3) 09/13/16 08:20 Eos % (Auto) 0.4 % (0.0-4.3) 09/13/16 08:20 Baso % (Auto) 0.3 % (0.0-1.8) 09/13/16 08:20 Lymph # 0.8 K/mm3 (1.2-5.4) L 09/13/16 08:20 [place] # 0.5 K/mm3 (0.0-0.8) 09/13/16 08:20 Eos # 0.0 K/mm3 (0.0-0.4) 09/13/16 08:20 Baso # 0.0 K/mm3 (0.0-0.1) 09/13/16 08:20 Seg Neutrophils % 84.2 % (40.0-70.0) H 09/13/16 08:20 Seg Neutrophils # 7.3 K/mm3 (1.8-7.7) 09/13/16 08:20 PT 13.5 Sec. (12.2-14.9) 09/13/16 08:20 INR 1.04 (0.87-1.13) 09/13/16 08:20 APTT 24.9 Sec. (24.2-36.6) 09/13/16 08:20 Thrombin Time 15.3 Sec. (15.1-19.6) 09/13/16 08:20 Sodium 146 mmol/L (137-145) H 09/14/16 08:13 Potassium 4.0 mmol/L (3.6-5.0) 09/14/16 08:13 Chloride 104.8 mmol/L (98-107) 09/14/16 08:13 Carbon Dioxide 21 mmol/L (22-30) L 09/14/16 08:13 Anion Gap 24 mmol/L 09/14/16 08:13 BUN 23 mg/dL (9-20) H 09/14/16 08:13 Creatinine 0.8 mg/dL (0.8-1.5) 09/14/16 08:13 Estimated GFR > 60 ml/min 09/14/16 08:13 BUN/Creatinine Ratio 28.75 % 09/14/16 08:13 Glucose 138 mg/dL (75-100) H 09/14/16 08:13 POC Glucose 119 (70-105) H 09/17/16 10:02 Calcium 9.5 mg/dL (8.4-10.2) 09/14/16 08:13 Troponin T < 0.010 ng/mL (0.00-0.029) 09/13/16 08:20 Triglycerides 94 mg/dL (2-149) 09/13/16 08:41 Cholesterol 254 mg/dL (50-199) H 09/13/16 08:41 LDL Cholesterol Direct 178 mg/dL (50-130) H 09/13/16 08:41 HDL Cholesterol 58 mg/dL (40-59) 09/13/16 08:41 Cholesterol/HDL Ratio 4.37 % 09/13/16 08:41
--- NOTE | 2016-09-18 00:26 | Consultation ---
HISTORY OF PRESENT ILLNESS: This is a 56-year-old black male who enters [facility] on 09/13/2016. The patient presented to the hospital, possible stroke. He had presented with left-sided weakness, onset by his history 2-3 days prior to admission and therefore, the patient was not a TPA candidate. History that we have is that the patient had experienced weakness on his left side. This is new onset. REVIEW OF SYSTEMS: Was essentially unremarkable provided very little history when this occurred. No family members present. He had in the past been taking aspirin. His blood pressure was markedly elevated on admission at 246/120 and subsequent to being admitted, his blood pressure has been stabilized. The patient's past medical history is not significant except for hypertension and he does state he had a stroke before it is knowledgeable but he has elevated cholesterol. SOCIAL HISTORY: Denies drinking, denies smoking. He does have a prior medical history of vitiligo. The patient has no known allergies. Initially on admission, additional history was obtained by Dr. Knapp. Data indicates that he had had diabetes, gastroesophageal reflux disorder, status post coronary artery bypass graft in [facility] in 2017. The patient has a prior history of stroke. Review of his laboratories does showed his hematocrit is 41.3. His glucose is 90. His sodium is 140, potassium 3.9, creatinine 1.0. PHYSICAL EXAMINATION: VITAL SIGNS: The patient reveals him blood pressure to be 130/80, pulse rate 80, respirations 18. NEUROLOGIC: Cranial nerves 2-12 are intact. He has, on examination, a marked weakness of the left arm and left leg. He has NIH stroke scale of 8 with a visual field defect to the left, denial of hemiparesis. He does not move the left side at all including face, arm, and leg. His speech is intact. Sensory examination, the right side is normal. The patient has motor and sensory examination otherwise unremarkable. IMPRESSION: This patient has acute stroke of the right anterior cerebral artery and I would recommend further assess echocardiogram and the patient's evaluation at this point, he is neurologically stable and I would recommend a short-term rehabilitation for the patient, medical therapy is recommended. In addition to the right-sided subacute stroke of the right MCA, right DAVID territory, there is also a small left lacunar infarct and cerebellum. This patient more than likely has hypertensive disease as a cause of this. I do not think that typically the distribution seen in the anterior cerebral artery is embolic given the nature of where the lesion is. 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 JOB# [id number] ABHINAV/NTS
[2016-09-18] MEDS: APRESOLINE PO SCH ×3 (06:00→18:39)
--- NOTE | 2016-09-18 09:08 | Progress Note ---
Subjective Date of service: 09/18/16 Interval history: Patient is awake and alert. No anesthetic related complaints. Objective - Constitutional Vitals: Vital Signs - 12hr 09/17/16 09/17/16 09/18/16 22:13 22:49 00:58 Temperature 98.4 F 98.3 F Pulse Rate 96 H 90 Respiratory 18 20 Rate Blood Pressure 162/92 162/92 135/78 O2 Sat by Pulse 100 96 Oximetry 09/18/16 09/18/16 05:38 06:00 Temperature 98.6 F Pulse Rate 90 70 Respiratory 18 Rate Blood Pressure 135/77 135/77 O2 Sat by Pulse 96 Oximetry - Labs CBC & Chem 7: 09/13/16 08:20 09/14/16 08:13 Labs: Abnormal lab results 09/17/16 Range/Units 10:02 POC Glucose 119 H (70-105)
[2016-09-18] MEDS: COZAAR PO SCH ×2 (10:17→18:38)
[2016-09-18] MEDS: PROCARDIA XL PO SCH ×2 (10:17→22:30)
[2016-09-18] MEDS: LOVENOX SUB-Q SCH (10:17)
[2016-09-18] MEDS: ASPIRIN PO SCH (10:18)
--- NOTE | 2016-09-18 17:12 | Progress Note ---
Assessment and Plan Assessment and plan: --Acute CVA/left hemiparesis, Not a candidate for TPA, workup in progress MRI; Right cerebral hemisphere acute subacute infarcts involving the MCA and possible right [place] MRA; occlusion versus high-grade partial thrombosis of the right anterior cerebral artery Neurology following, aspirin and statin , physical therapy occupational therapy , subacute rehabilitation --Urinary retention; continues catheterization --Dyslipidemia continue lipid-lowering medications --Hypertension; uncontrolled Permissive hypertension, per stroke protocol .continue current antihypertensives and when necessary medications --DVT prophylaxis; Lovenox --Discharge Planning.; Case management; possible subacute rehabilitation Follow neurology evaluation and recommendations Assessment and plan reviewed with the patient at the bedside as well as his nurse History Interval history: Patient seen and evaluated medical records reviewed Patient is more alert and awake responding appropriately today Acute CVA with left-sided hemiparesis, no new complaints Hospitalist Physical - Constitutional Vitals: Temp Pulse Resp BP Pulse Ox 98.6 F 88 20 175/93 97 09/18/16 16:14 09/18/16 16:14 09/18/16 16:14 09/18/16 16:14 09/18/16 16:14 General appearance: Present: no acute distress, well-nourished, other (responds appropriately) - EENT Eyes: Present: PERRL, EOM intact - Neck Neck: Present: supple, normal ROM - Respiratory Respiratory effort: normal Respiratory: negative: rales, rhonchi, wheezing - Cardiovascular Rhythm: regular Heart Sounds: Present: S1 & S2 - Extremities Extremities: no ischemia, No edema - Abdominal General gastrointestinal: soft, non-tender, non-distended, normal bowel sounds - Integumentary Integumentary: Present: clear, warm - Psychiatric Psychiatric: appropriate mood/affect, cooperative - Neurologic Neurologic: other (left-sided hemiparesis) Results - Labs CBC & Chem 7: 09/13/16 08:20 09/14/16 08:13 Labs: Laboratory Last Values WBC 8.7 K/mm3 (4.5-11.0) 09/13/16 08:20 RBC 5.68 M/mm3 (3.65-5.03) H 09/13/16 08:20 Hgb 12.9 gm/dl (11.8-15.2) 09/13/16 08:20 Hct 41.3 % (35.5-45.6) 09/13/16 08:20 MCV 73 fl (84-94) L 09/13/16 08:20 MCH 23 pg (28-32) L 09/13/16 08:20 MCHC 31 % (32-34) L 09/13/16 08:20 RDW 17.6 % (13.2-15.2) H 09/13/16 08:20 Plt Count 313 K/mm3 (140-440) 09/13/16 08:20 Lymph % (Auto) 8.9 % (13.4-35.0) L 09/13/16 08:20 [place] % (Auto) 6.2 % (0.0-7.3) 09/13/16 08:20 Eos % (Auto) 0.4 % (0.0-4.3) 09/13/16 08:20 Baso % (Auto) 0.3 % (0.0-1.8) 09/13/16 08:20 Lymph # 0.8 K/mm3 (1.2-5.4) L 09/13/16 08:20 [place] # 0.5 K/mm3 (0.0-0.8) 09/13/16 08:20 Eos # 0.0 K/mm3 (0.0-0.4) 09/13/16 08:20 Baso # 0.0 K/mm3 (0.0-0.1) 09/13/16 08:20 Seg Neutrophils % 84.2 % (40.0-70.0) H 09/13/16 08:20 Seg Neutrophils # 7.3 K/mm3 (1.8-7.7) 09/13/16 08:20 PT 13.5 Sec. (12.2-14.9) 09/13/16 08:20 INR 1.04 (0.87-1.13) 09/13/16 08:20 APTT 24.9 Sec. (24.2-36.6) 09/13/16 08:20 Thrombin Time 15.3 Sec. (15.1-19.6) 09/13/16 08:20 Sodium 146 mmol/L (137-145) H 09/14/16 08:13 Potassium 4.0 mmol/L (3.6-5.0) 09/14/16 08:13 Chloride 104.8 mmol/L (98-107) 09/14/16 08:13 Carbon Dioxide 21 mmol/L (22-30) L 09/14/16 08:13 Anion Gap 24 mmol/L 09/14/16 08:13 BUN 23 mg/dL (9-20) H 09/14/16 08:13 Creatinine 0.8 mg/dL (0.8-1.5) 09/14/16 08:13 Estimated GFR > 60 ml/min 09/14/16 08:13 BUN/Creatinine Ratio 28.75 % 09/14/16 08:13 Glucose 138 mg/dL (75-100) H 09/14/16 08:13 POC Glucose 119 (70-105) H 09/17/16 10:02 Calcium 9.5 mg/dL (8.4-10.2) 09/14/16 08:13 Troponin T < 0.010 ng/mL (0.00-0.029) 09/13/16 08:20 Triglycerides 94 mg/dL (2-149) 09/13/16 08:41 Cholesterol 254 mg/dL (50-199) H 09/13/16 08:41 LDL Cholesterol Direct 178 mg/dL (50-130) H 09/13/16 08:41 HDL Cholesterol 58 mg/dL (40-59) 09/13/16 08:41 Cholesterol/HDL Ratio 4.37 % 09/13/16 08:41
[2016-09-18] MEDS: BABY ASPIRIN PO SCH (18:39)
[2016-09-18] MEDS: APRESOLINE IV PRN (21:02)
[2016-09-19] MEDS: APRESOLINE PO SCH ×3 (06:06→19:35)
[2016-09-19] MEDS: DULCOLAX PR PRN (08:29)
[2016-09-19] MEDS: COZAAR PO SCH (08:57)
[2016-09-19] MEDS: BABY ASPIRIN PO SCH (09:00)
[2016-09-19] MEDS: PROCARDIA XL PO SCH ×2 (09:00→21:17)
[2016-09-19] MEDS: LOVENOX SUB-Q SCH (09:00)
[2016-09-19] MEDS: PLAVIX PO SCH (09:00)
--- NOTE | 2016-09-19 17:57 | Progress Note ---
Assessment and Plan Assessment and plan: --Constipation; patient had hard stool, give stool softeners and milk of magnesia when necessary Encouraged plenty of fluids --Acute CVA/left hemiparesis, Not a candidate for TPA, workup in progress MRI; Right cerebral hemisphere acute subacute infarcts involving the MCA and possible right [place] MRA; occlusion versus high-grade partial thrombosis of the right anterior cerebral artery Neurology following, aspirin, Plavix and statin , physical therapy occupational therapy, subacute rehabilitation --Urinary retention; resolved, patient is incontinent at times has diapers, bladder training --Dyslipidemia continue lipid-lowering medications --Hypertension; well controlled, continue current antihypertensives and when necessary medications --DVT prophylaxis; Lovenox --Discharge Planning.; Case management; possible subacute rehabilitation Follow neurology evaluation and recommendations Assessment and plan reviewed with the patient at the bedside as well as his nurse History Interval history: Patient is more alert and awake Responding appropriately Left-sided weakness slight improvement Complaints of constipation Hospitalist Physical - Constitutional Vitals: Temp Pulse Resp BP Pulse Ox 98.9 F 91 H 20 183/86 98 09/19/16 17:07 09/19/16 17:07 09/19/16 17:07 09/19/16 17:07 09/19/16 17:07 General appearance: Present: no acute distress, well-nourished, other (responds appropriately) - EENT Eyes: Present: PERRL, EOM intact - Neck Neck: Present: supple, normal ROM - Respiratory Respiratory effort: normal Respiratory: negative: rales, rhonchi, wheezing - Cardiovascular Rhythm: regular Heart Sounds: Present: S1 & S2 - Extremities Extremities: no ischemia, No edema - Abdominal General gastrointestinal: soft, non-tender, non-distended, normal bowel sounds - Integumentary Integumentary: Present: clear, warm - Psychiatric Psychiatric: appropriate mood/affect, cooperative - Neurologic Neurologic: other (left-sided weakness) Results - Labs CBC & Chem 7: 09/13/16 08:20 09/14/16 08:13 Labs: Laboratory Last Values WBC 8.7 K/mm3 (4.5-11.0) 09/13/16 08:20 RBC 5.68 M/mm3 (3.65-5.03) H 09/13/16 08:20 Hgb 12.9 gm/dl (11.8-15.2) 09/13/16 08:20 Hct 41.3 % (35.5-45.6) 09/13/16 08:20 MCV 73 fl (84-94) L 09/13/16 08:20 MCH 23 pg (28-32) L 09/13/16 08:20 MCHC 31 % (32-34) L 09/13/16 08:20 RDW 17.6 % (13.2-15.2) H 09/13/16 08:20 Plt Count 313 K/mm3 (140-440) 09/13/16 08:20 Lymph % (Auto) 8.9 % (13.4-35.0) L 09/13/16 08:20 [place] % (Auto) 6.2 % (0.0-7.3) 09/13/16 08:20 Eos % (Auto) 0.4 % (0.0-4.3) 09/13/16 08:20 Baso % (Auto) 0.3 % (0.0-1.8) 09/13/16 08:20 Lymph # 0.8 K/mm3 (1.2-5.4) L 09/13/16 08:20 [place] # 0.5 K/mm3 (0.0-0.8) 09/13/16 08:20 Eos # 0.0 K/mm3 (0.0-0.4) 09/13/16 08:20 Baso # 0.0 K/mm3 (0.0-0.1) 09/13/16 08:20 Seg Neutrophils % 84.2 % (40.0-70.0) H 09/13/16 08:20 Seg Neutrophils # 7.3 K/mm3 (1.8-7.7) 09/13/16 08:20 PT 13.5 Sec. (12.2-14.9) 09/13/16 08:20 INR 1.04 (0.87-1.13) 09/13/16 08:20 APTT 24.9 Sec. (24.2-36.6) 09/13/16 08:20 Thrombin Time 15.3 Sec. (15.1-19.6) 09/13/16 08:20 Sodium 146 mmol/L (137-145) H 09/14/16 08:13 Potassium 4.0 mmol/L (3.6-5.0) 09/14/16 08:13 Chloride 104.8 mmol/L (98-107) 09/14/16 08:13 Carbon Dioxide 21 mmol/L (22-30) L 09/14/16 08:13 Anion Gap 24 mmol/L 09/14/16 08:13 BUN 23 mg/dL (9-20) H 09/14/16 08:13 Creatinine 0.8 mg/dL (0.8-1.5) 09/14/16 08:13 Estimated GFR > 60 ml/min 09/14/16 08:13 BUN/Creatinine Ratio 28.75 % 09/14/16 08:13 Glucose 138 mg/dL (75-100) H 09/14/16 08:13 POC Glucose 119 (70-105) H 09/17/16 10:02 Calcium 9.5 mg/dL (8.4-10.2) 09/14/16 08:13 Troponin T < 0.010 ng/mL (0.00-0.029) 09/13/16 08:20 Triglycerides 94 mg/dL (2-149) 09/13/16 08:41 Cholesterol 254 mg/dL (50-199) H 09/13/16 08:41 LDL Cholesterol Direct 178 mg/dL (50-130) H 09/13/16 08:41 HDL Cholesterol 58 mg/dL (40-59) 09/13/16 08:41 Cholesterol/HDL Ratio 4.37 % 09/13/16 08:41
[2016-09-19] MEDS ORDERED: APRESOLINE PO SCH (18:03)
[2016-09-19] MEDS: APRESOLINE IV PRN (23:28)
[2016-09-20] MEDS: APRESOLINE PO SCH ×3 (05:16→22:43)
[2016-09-20] MEDS: LOVENOX SUB-Q SCH (09:19)
[2016-09-20] MEDS: PLAVIX PO SCH (09:19)
[2016-09-20] MEDS: PROCARDIA XL PO SCH ×2 (09:19→22:43)
[2016-09-20] MEDS: COZAAR PO SCH (09:19)
[2016-09-20] MEDS: BABY ASPIRIN PO SCH (09:19)
--- NOTE | 2016-09-20 12:29 | Consultation ---
History of Present Illness - Reason for Consult Consult date: 09/20/16 stroke - History of Present Illness rehab planning in progress as far as d/c planning needs rehab as there is right abdifatah stroke Past History Past Medical History: diabetes, hypertension, other Past Surgical History: CABG Social history: Lives alone Family history: CAD Medications and Allergies Allergies Allergy/AdvReac Type Severity Reaction Status Date / Time No Known Allergies Allergy Verified 09/13/16 09:38 Home Medications Medication Instructions Recorded Confirmed Last Taken Type Aspirin [Aspirin BABY CHEW TAB] 81 mg PO QDAY 09/13/16 09/13/16 Unknown History Olmesartan (Nf) [Benicar (Nf)] 5 mg PO QDAY 09/13/16 09/13/16 Unknown History Active Meds: Active Medications Acetaminophen (Tylenol) 650 mg PO Q4H PRN PRN Reason: Pain MILD(1-3)/Fever >100.5/TAYLOR Last Admin: 09/15/16 16:22 Dose: 650 mg Aspirin (Baby Aspirin) 81 mg PO DAILY [facility] Last Admin: 09/20/16 09:19 Dose: 81 mg Atorvastatin Calcium (Lipitor) 80 mg PO QHS [facility] Last Admin: 09/19/16 21:17 Dose: 80 mg Bisacodyl (Dulcolax) 10 mg ND QDAY PRN PRN Reason: Constipation unrelieved by MOM Last Admin: 09/19/16 08:29 Dose: 10 mg Clopidogrel Bisulfate (Plavix) 75 mg PO QDAY [facility] Last Admin: 09/20/16 09:19 Dose: 75 mg Enoxaparin Sodium (Lovenox) 40 mg SUB-Q QDAY@1000 [facility] Last Admin: 09/20/16 09:19 Dose: 40 mg Hydralazine HCl (Apresoline) 20 mg IV Q4H PRN PRN Reason: Blood Pressure Last Admin: 09/19/16 23:28 Dose: 20 mg Hydralazine HCl (Apresoline) 100 mg PO Q8HR [facility] Last Admin: 09/20/16 05:16 Dose: 100 mg Lorazepam (Ativan) 1 mg IV Q4H PRN PRN Reason: Agitation Last Admin: 09/16/16 11:32 Dose: 1 mg Losartan Potassium (Cozaar) 50 mg PO QDAY [facility] Last Admin: 09/20/16 09:19 Dose: 50 mg Magnesium Hydroxide (Milk Of Magnesia) 30 ml PO QDAY PRN PRN Reason: Constipation Nifedipine (Procardia Xl) 30 mg PO Q12HR [facility] Last Admin: 09/20/16 09:19 Dose: 30 mg Ondansetron HCl (Zofran) 4 mg IV Q8H PRN PRN Reason: N/V unrelieved by Reglan Exam - Constitutional Vitals: Temp Pulse Resp BP Pulse Ox 98.2 F 92 H 18 159/74 95 09/20/16 08:00 09/20/16 08:00 09/20/16 08:00 09/20/16 08:00 09/20/16 08:00 Results - Labs CBC & Chem 7: 09/13/16 08:20 09/14/16 08:13
--- NOTE | 2016-09-20 16:54 | Progress Note ---
Assessment and Plan Assessment and plan: --Constipation; patient had hard stool, give stool softeners and milk of magnesia when necessary Encouraged plenty of fluids --Acute CVA/left hemiparesis, Not a candidate for TPA, workup in progress MRI; Right cerebral hemisphere acute subacute infarcts involving the MCA and possible right [place] MRA; occlusion versus high-grade partial thrombosis of the right anterior cerebral artery Neurology following, aspirin, Plavix and statin , physical therapy occupational therapy, subacute rehabilitation --Urinary retention; resolved, patient is incontinent at times has diapers, bladder training --Dyslipidemia continue lipid-lowering medications --Hypertension; well controlled, continue current antihypertensives and when necessary medications --DVT prophylaxis; Lovenox --Discharge Planning.; Case management; possible subacute rehabilitation Follow neurology evaluation and recommendations Assessment and plan reviewed with the patient at the bedside as well as his nurse History Interval history: Patient seen and evaluated in his room medical records reviewed no new events reported by the nursing staff Tolerating physical therapy, complaints of some constipation Hospitalist Physical - Constitutional Vitals: Temp Pulse Resp BP Pulse Ox 98.2 F 92 H 18 159/74 95 09/20/16 08:00 09/20/16 08:00 09/20/16 08:00 09/20/16 08:00 09/20/16 08:00 General appearance: Present: no acute distress, well-nourished, other (responds appropriately) - EENT Eyes: Present: PERRL, EOM intact - Neck Neck: Present: supple, normal ROM - Respiratory Respiratory effort: normal Respiratory: bilateral: diminished, negative: rales, rhonchi, wheezing - Cardiovascular Rhythm: regular Heart Sounds: Present: S1 & S2 - Extremities Extremities: no ischemia, No edema - Abdominal General gastrointestinal: soft, non-tender, non-distended, normal bowel sounds - Integumentary Integumentary: Present: clear, warm - Psychiatric Psychiatric: appropriate mood/affect, cooperative - Neurologic Neurologic: other (dense left-sided hemiparesis) Results - Labs CBC & Chem 7: 09/13/16 08:20 09/14/16 08:13 Labs: Laboratory Last Values WBC 8.7 K/mm3 (4.5-11.0) 09/13/16 08:20 RBC 5.68 M/mm3 (3.65-5.03) H 09/13/16 08:20 Hgb 12.9 gm/dl (11.8-15.2) 09/13/16 08:20 Hct 41.3 % (35.5-45.6) 09/13/16 08:20 MCV 73 fl (84-94) L 09/13/16 08:20 MCH 23 pg (28-32) L 09/13/16 08:20 MCHC 31 % (32-34) L 09/13/16 08:20 RDW 17.6 % (13.2-15.2) H 09/13/16 08:20 Plt Count 313 K/mm3 (140-440) 09/13/16 08:20 Lymph % (Auto) 8.9 % (13.4-35.0) L 09/13/16 08:20 [place] % (Auto) 6.2 % (0.0-7.3) 09/13/16 08:20 Eos % (Auto) 0.4 % (0.0-4.3) 09/13/16 08:20 Baso % (Auto) 0.3 % (0.0-1.8) 09/13/16 08:20 Lymph # 0.8 K/mm3 (1.2-5.4) L 09/13/16 08:20 [place] # 0.5 K/mm3 (0.0-0.8) 09/13/16 08:20 Eos # 0.0 K/mm3 (0.0-0.4) 09/13/16 08:20 Baso # 0.0 K/mm3 (0.0-0.1) 09/13/16 08:20 Seg Neutrophils % 84.2 % (40.0-70.0) H 09/13/16 08:20 Seg Neutrophils # 7.3 K/mm3 (1.8-7.7) 09/13/16 08:20 PT 13.5 Sec. (12.2-14.9) 09/13/16 08:20 INR 1.04 (0.87-1.13) 09/13/16 08:20 APTT 24.9 Sec. (24.2-36.6) 09/13/16 08:20 Thrombin Time 15.3 Sec. (15.1-19.6) 09/13/16 08:20 Sodium 146 mmol/L (137-145) H 09/14/16 08:13 Potassium 4.0 mmol/L (3.6-5.0) 09/14/16 08:13 Chloride 104.8 mmol/L (98-107) 09/14/16 08:13 Carbon Dioxide 21 mmol/L (22-30) L 09/14/16 08:13 Anion Gap 24 mmol/L 09/14/16 08:13 BUN 23 mg/dL (9-20) H 09/14/16 08:13 Creatinine 0.8 mg/dL (0.8-1.5) 09/14/16 08:13 Estimated GFR > 60 ml/min 09/14/16 08:13 BUN/Creatinine Ratio 28.75 % 09/14/16 08:13 Glucose 138 mg/dL (75-100) H 09/14/16 08:13 POC Glucose 119 (70-105) H 09/17/16 10:02 Calcium 9.5 mg/dL (8.4-10.2) 09/14/16 08:13 Troponin T < 0.010 ng/mL (0.00-0.029) 09/13/16 08:20 Triglycerides 94 mg/dL (2-149) 09/13/16 08:41 Cholesterol 254 mg/dL (50-199) H 09/13/16 08:41 LDL Cholesterol Direct 178 mg/dL (50-130) H 09/13/16 08:41 HDL Cholesterol 58 mg/dL (40-59) 09/13/16 08:41 Cholesterol/HDL Ratio 4.37 % 09/13/16 08:41
[2016-09-20] MEDS: ATIVAN IV PRN (22:43)
[2016-09-20] MEDS: APRESOLINE IV PRN (22:43)
[2016-09-21] MEDS: APRESOLINE PO SCH ×3 (05:37→21:31)
--- NOTE | 2016-09-21 08:28 | Progress Note ---
Assessment and Plan Assessment and plan: --Constipation; significantly improved with stool softeners, supportive care --Acute CVA/left hemiparesis, Not a candidate for TPA, workup in progress MRI; Right cerebral hemisphere acute subacute infarcts involving the MCA and possible right [place] MRA; occlusion versus high-grade partial thrombosis of the right anterior cerebral artery Neurology following, aspirin, Plavix and statin , physical therapy occupational therapy, subacute rehabilitation --Urinary retention; resolved, patient is incontinent at times has diapers, bladder training --Dyslipidemia continue lipid-lowering medications --Hypertension; well controlled, continue current antihypertensives and when necessary medications --DVT prophylaxis; Lovenox --Discharge Planning.; Case management; possible subacute rehabilitation However patient has no payer source. Follow neurology evaluation and recommendations Assessment and plan reviewed with the patient at the bedside as well as his nurse History Interval history: Patient seen and evaluated this morning medical records reviewed Patient is alert awake oriented 3, responding appropriately Tolerated regular diet, undergoing physical therapy Hospitalist Physical - Constitutional Vitals: Temp Pulse Resp BP Pulse Ox 97.6 F 84 18 145/68 96 09/21/16 05:02 09/21/16 07:24 09/21/16 05:02 09/21/16 05:02 09/21/16 05:02 General appearance: Present: no acute distress, well-nourished, other (responds appropriately) - EENT Eyes: Present: PERRL, EOM intact - Neck Neck: Present: supple, normal ROM - Respiratory Respiratory effort: normal Respiratory: bilateral: diminished, negative: rales, rhonchi, wheezing - Cardiovascular Rhythm: regular Heart Sounds: Present: S1 & S2 - Extremities Extremities: no ischemia, No edema - Abdominal General gastrointestinal: soft, non-tender, non-distended, normal bowel sounds - Integumentary Integumentary: Present: clear, warm - Psychiatric Psychiatric: appropriate mood/affect, cooperative - Neurologic Neurologic: other (acute CVA with left-sided hemiparesis) Results - Labs CBC & Chem 7: 09/13/16 08:20 09/14/16 08:13 Labs: Laboratory Last Values WBC 8.7 K/mm3 (4.5-11.0) 09/13/16 08:20 RBC 5.68 M/mm3 (3.65-5.03) H 09/13/16 08:20 Hgb 12.9 gm/dl (11.8-15.2) 09/13/16 08:20 Hct 41.3 % (35.5-45.6) 09/13/16 08:20 MCV 73 fl (84-94) L 09/13/16 08:20 MCH 23 pg (28-32) L 09/13/16 08:20 MCHC 31 % (32-34) L 09/13/16 08:20 RDW 17.6 % (13.2-15.2) H 09/13/16 08:20 Plt Count 313 K/mm3 (140-440) 09/13/16 08:20 Lymph % (Auto) 8.9 % (13.4-35.0) L 09/13/16 08:20 [place] % (Auto) 6.2 % (0.0-7.3) 09/13/16 08:20 Eos % (Auto) 0.4 % (0.0-4.3) 09/13/16 08:20 Baso % (Auto) 0.3 % (0.0-1.8) 09/13/16 08:20 Lymph # 0.8 K/mm3 (1.2-5.4) L 09/13/16 08:20 [place] # 0.5 K/mm3 (0.0-0.8) 09/13/16 08:20 Eos # 0.0 K/mm3 (0.0-0.4) 09/13/16 08:20 Baso # 0.0 K/mm3 (0.0-0.1) 09/13/16 08:20 Seg Neutrophils % 84.2 % (40.0-70.0) H 09/13/16 08:20 Seg Neutrophils # 7.3 K/mm3 (1.8-7.7) 09/13/16 08:20 PT 13.5 Sec. (12.2-14.9) 09/13/16 08:20 INR 1.04 (0.87-1.13) 09/13/16 08:20 APTT 24.9 Sec. (24.2-36.6) 09/13/16 08:20 Thrombin Time 15.3 Sec. (15.1-19.6) 09/13/16 08:20 Sodium 146 mmol/L (137-145) H 09/14/16 08:13 Potassium 4.0 mmol/L (3.6-5.0) 09/14/16 08:13 Chloride 104.8 mmol/L (98-107) 09/14/16 08:13 Carbon Dioxide 21 mmol/L (22-30) L 09/14/16 08:13 Anion Gap 24 mmol/L 09/14/16 08:13 BUN 23 mg/dL (9-20) H 09/14/16 08:13 Creatinine 0.8 mg/dL (0.8-1.5) 09/14/16 08:13 Estimated GFR > 60 ml/min 09/14/16 08:13 BUN/Creatinine Ratio 28.75 % 09/14/16 08:13 Glucose 138 mg/dL (75-100) H 09/14/16 08:13 POC Glucose 119 (70-105) H 09/17/16 10:02 Calcium 9.5 mg/dL (8.4-10.2) 09/14/16 08:13 Troponin T < 0.010 ng/mL (0.00-0.029) 09/13/16 08:20 Triglycerides 94 mg/dL (2-149) 09/13/16 08:41 Cholesterol 254 mg/dL (50-199) H 09/13/16 08:41 LDL Cholesterol Direct 178 mg/dL (50-130) H 09/13/16 08:41 HDL Cholesterol 58 mg/dL (40-59) 09/13/16 08:41 Cholesterol/HDL Ratio 4.37 % 09/13/16 08:41
[2016-09-21] MEDS: COZAAR PO SCH (10:18)
[2016-09-21] MEDS: PLAVIX PO SCH (10:18)
[2016-09-21] MEDS: BABY ASPIRIN PO SCH (10:18)
[2016-09-21] MEDS: PROCARDIA XL PO SCH ×2 (10:18→21:31)
[2016-09-21] MEDS: LOVENOX SUB-Q SCH (10:19)
[2016-09-21] MEDS: DULCOLAX PR PRN (20:33)
[2016-09-22] MEDS: ATIVAN IV PRN ×2 (00:53→21:37)
[2016-09-22] MEDS: APRESOLINE PO SCH ×3 (05:00→21:37)
[2016-09-22] MEDS: BABY ASPIRIN PO SCH (09:36)
[2016-09-22] MEDS: PLAVIX PO SCH (09:38)
[2016-09-22] MEDS: COZAAR PO SCH (09:39)
[2016-09-22] MEDS: PROCARDIA XL PO SCH ×2 (09:39→21:37)
[2016-09-22] MEDS: LOVENOX SUB-Q SCH (09:39)
--- NOTE | 2016-09-22 15:39 | Progress Note ---
Assessment and Plan Assessment and plan: --Constipation; significantly improved with stool softeners, supportive care --Acute CVA/left hemiparesis, Not a candidate for TPA, workup in progress MRI; Right cerebral hemisphere acute subacute infarcts involving the MCA and possible right [place] MRA; occlusion versus high-grade partial thrombosis of the right anterior cerebral artery Neurology following, aspirin, Plavix and statin , physical therapy occupational therapy, subacute rehabilitation --Urinary retention; resolved, patient is incontinent at times has diapers, bladder training --Dyslipidemia continue lipid-lowering medications --Hypertension; well controlled, continue current antihypertensives and when necessary medications --DVT prophylaxis; Lovenox --Discharge Planning.; Case management; possible subacute rehabilitation However patient has no payer source.,Follow neurology evaluation and recommendations Assessment and plan reviewed with the patient at the bedside as well as his nurse History Interval history: Patient seen and evaluated medical records reviewed No new events reported by the nursing staff Agent is tolerating physical therapy, awaiting placement Agent has no new complaints, vital signs reviewed Hospitalist Physical - Constitutional Vitals: Temp Pulse Resp BP Pulse Ox 98.3 F 80 20 181/89 97 09/22/16 08:00 09/22/16 13:35 09/22/16 13:35 09/22/16 13:35 09/22/16 08:00 General appearance: Present: no acute distress, well-nourished, other (responds appropriately) - EENT Eyes: Present: PERRL, EOM intact - Neck Neck: Present: supple, normal ROM - Respiratory Respiratory effort: normal Respiratory: bilateral: diminished, negative: rales, rhonchi, wheezing - Cardiovascular Rhythm: regular Heart Sounds: Present: S1 & S2 - Extremities Extremities: no ischemia, No edema Peripheral Pulses: within normal limits - Abdominal General gastrointestinal: soft, non-tender, non-distended, normal bowel sounds - Integumentary Integumentary: Present: clear, warm - Psychiatric Psychiatric: appropriate mood/affect, cooperative - Neurologic Neurologic: other ( CVA with dense left hemiplegia) Results - Labs CBC & Chem 7: 09/13/16 08:20 09/14/16 08:13 Labs: Laboratory Last Values WBC 8.7 K/mm3 (4.5-11.0) 09/13/16 08:20 RBC 5.68 M/mm3 (3.65-5.03) H 09/13/16 08:20 Hgb 12.9 gm/dl (11.8-15.2) 09/13/16 08:20 Hct 41.3 % (35.5-45.6) 09/13/16 08:20 MCV 73 fl (84-94) L 09/13/16 08:20 MCH 23 pg (28-32) L 09/13/16 08:20 MCHC 31 % (32-34) L 09/13/16 08:20 RDW 17.6 % (13.2-15.2) H 09/13/16 08:20 Plt Count 313 K/mm3 (140-440) 09/13/16 08:20 Lymph % (Auto) 8.9 % (13.4-35.0) L 09/13/16 08:20 [place] % (Auto) 6.2 % (0.0-7.3) 09/13/16 08:20 Eos % (Auto) 0.4 % (0.0-4.3) 09/13/16 08:20 Baso % (Auto) 0.3 % (0.0-1.8) 09/13/16 08:20 Lymph # 0.8 K/mm3 (1.2-5.4) L 09/13/16 08:20 [place] # 0.5 K/mm3 (0.0-0.8) 09/13/16 08:20 Eos # 0.0 K/mm3 (0.0-0.4) 09/13/16 08:20 Baso # 0.0 K/mm3 (0.0-0.1) 09/13/16 08:20 Seg Neutrophils % 84.2 % (40.0-70.0) H 09/13/16 08:20 Seg Neutrophils # 7.3 K/mm3 (1.8-7.7) 09/13/16 08:20 PT 13.5 Sec. (12.2-14.9) 09/13/16 08:20 INR 1.04 (0.87-1.13) 09/13/16 08:20 APTT 24.9 Sec. (24.2-36.6) 09/13/16 08:20 Thrombin Time 15.3 Sec. (15.1-19.6) 09/13/16 08:20 Sodium 146 mmol/L (137-145) H 09/14/16 08:13 Potassium 4.0 mmol/L (3.6-5.0) 09/14/16 08:13 Chloride 104.8 mmol/L (98-107) 09/14/16 08:13 Carbon Dioxide 21 mmol/L (22-30) L 09/14/16 08:13 Anion Gap 24 mmol/L 09/14/16 08:13 BUN 23 mg/dL (9-20) H 09/14/16 08:13 Creatinine 0.8 mg/dL (0.8-1.5) 09/14/16 08:13 Estimated GFR > 60 ml/min 09/14/16 08:13 BUN/Creatinine Ratio 28.75 % 09/14/16 08:13 Glucose 138 mg/dL (75-100) H 09/14/16 08:13 POC Glucose 119 (70-105) H 09/17/16 10:02 Calcium 9.5 mg/dL (8.4-10.2) 09/14/16 08:13 Troponin T < 0.010 ng/mL (0.00-0.029) 09/13/16 08:20 Triglycerides 94 mg/dL (2-149) 09/13/16 08:41 Cholesterol 254 mg/dL (50-199) H 09/13/16 08:41 LDL Cholesterol Direct 178 mg/dL (50-130) H 09/13/16 08:41 HDL Cholesterol 58 mg/dL (40-59) 09/13/16 08:41 Cholesterol/HDL Ratio 4.37 % 09/13/16 08:41
[2016-09-22] MEDS: DULCOLAX PR PRN (21:43)
[2016-09-23] MEDS: APRESOLINE PO SCH ×3 (06:20→22:23)
[2016-09-23] MEDS: LOVENOX SUB-Q SCH (09:36)
[2016-09-23] MEDS: PLAVIX PO SCH (09:37)
[2016-09-23] MEDS: COZAAR PO SCH (09:37)
[2016-09-23] MEDS: PROCARDIA XL PO SCH ×2 (09:37→22:23)
[2016-09-23] MEDS: BABY ASPIRIN PO SCH (09:37)
--- NOTE | 2016-09-23 15:28 | Progress Note ---
Assessment and Plan Assessment and plan: --Acute CVA/left hemiplegia , Not a candidate for TPA, workup in progress MRI; Right cerebral hemisphere acute subacute infarcts involving the MCA and possible right DAVID territories MRA; occlusion versus high-grade partial thrombosis of the right anterior cerebral artery Neurology following, aspirin, Plavix and statin , physical therapy occupational therapy, subacute rehabilitation --Constipation; significantly improved with stool softeners, supportive care --Urinary retention; resolved, patient is incontinent at times has diapers, bladder training --Dyslipidemia continue lipid-lowering medications --Hypertension; well controlled, continue current antihypertensives and when necessary medications --DVT prophylaxis; Lovenox --Discharge Planning.; No payer source , awaiting placement Assessment and plan reviewed with the patient at the bedside as well as his nurse History Interval history: Patient is better no new complaints Awaiting placement Tolerating physical therapy Hospitalist Physical - Constitutional Vitals: Temp Pulse Resp BP Pulse Ox 98.6 F 82 18 164/88 97 09/23/16 08:00 09/23/16 08:00 09/23/16 08:00 09/23/16 08:00 09/23/16 08:00 General appearance: Present: no acute distress, well-nourished - EENT Eyes: Present: PERRL, EOM intact - Neck Neck: Present: supple, normal ROM - Respiratory Respiratory effort: normal Respiratory: negative: rales, rhonchi, wheezing - Cardiovascular Rhythm: regular Heart Sounds: Present: S1 & S2 - Extremities Extremities: no ischemia, No edema - Abdominal General gastrointestinal: soft, non-tender, non-distended, normal bowel sounds - Integumentary Integumentary: Present: clear, warm - Psychiatric Psychiatric: appropriate mood/affect, cooperative - Neurologic Neurologic: other (dense left hemiplegia) Results - Labs CBC & Chem 7: 09/13/16 08:20 09/14/16 08:13 Labs: Laboratory Last Values WBC 8.7 K/mm3 (4.5-11.0) 09/13/16 08:20 RBC 5.68 M/mm3 (3.65-5.03) H 09/13/16 08:20 Hgb 12.9 gm/dl (11.8-15.2) 09/13/16 08:20 Hct 41.3 % (35.5-45.6) 09/13/16 08:20 MCV 73 fl (84-94) L 09/13/16 08:20 MCH 23 pg (28-32) L 09/13/16 08:20 MCHC 31 % (32-34) L 09/13/16 08:20 RDW 17.6 % (13.2-15.2) H 09/13/16 08:20 Plt Count 313 K/mm3 (140-440) 09/13/16 08:20 Lymph % (Auto) 8.9 % (13.4-35.0) L 09/13/16 08:20 [place] % (Auto) 6.2 % (0.0-7.3) 09/13/16 08:20 Eos % (Auto) 0.4 % (0.0-4.3) 09/13/16 08:20 Baso % (Auto) 0.3 % (0.0-1.8) 09/13/16 08:20 Lymph # 0.8 K/mm3 (1.2-5.4) L 09/13/16 08:20 [place] # 0.5 K/mm3 (0.0-0.8) 09/13/16 08:20 Eos # 0.0 K/mm3 (0.0-0.4) 09/13/16 08:20 Baso # 0.0 K/mm3 (0.0-0.1) 09/13/16 08:20 Seg Neutrophils % 84.2 % (40.0-70.0) H 09/13/16 08:20 Seg Neutrophils # 7.3 K/mm3 (1.8-7.7) 09/13/16 08:20 PT 13.5 Sec. (12.2-14.9) 09/13/16 08:20 INR 1.04 (0.87-1.13) 09/13/16 08:20 APTT 24.9 Sec. (24.2-36.6) 09/13/16 08:20 Thrombin Time 15.3 Sec. (15.1-19.6) 09/13/16 08:20 Sodium 146 mmol/L (137-145) H 09/14/16 08:13 Potassium 4.0 mmol/L (3.6-5.0) 09/14/16 08:13 Chloride 104.8 mmol/L (98-107) 09/14/16 08:13 Carbon Dioxide 21 mmol/L (22-30) L 09/14/16 08:13 Anion Gap 24 mmol/L 09/14/16 08:13 BUN 23 mg/dL (9-20) H 09/14/16 08:13 Creatinine 0.8 mg/dL (0.8-1.5) 09/14/16 08:13 Estimated GFR > 60 ml/min 09/14/16 08:13 BUN/Creatinine Ratio 28.75 % 09/14/16 08:13 Glucose 138 mg/dL (75-100) H 09/14/16 08:13 POC Glucose 119 (70-105) H 09/17/16 10:02 Calcium 9.5 mg/dL (8.4-10.2) 09/14/16 08:13 Troponin T < 0.010 ng/mL (0.00-0.029) 09/13/16 08:20 Triglycerides 94 mg/dL (2-149) 09/13/16 08:41 Cholesterol 254 mg/dL (50-199) H 09/13/16 08:41 LDL Cholesterol Direct 178 mg/dL (50-130) H 09/13/16 08:41 HDL Cholesterol 58 mg/dL (40-59) 09/13/16 08:41 Cholesterol/HDL Ratio 4.37 % 09/13/16 08:41
[2016-09-24 05:36] LABS: Basophils % (Auto) 0.8 % (0.0-1.8); Eosinophils % (Auto) 0.8 % (0.0-4.3); Hematocrit 41.7 % (35.5-45.6); Hemoglobin 13.1 gm/dl (11.8-15.2); Mean Corpuscular HGB Conc 32 % (32-34); Mean Corpuscular Volume 72 fl (84-94); Platelet Count 348 K/mm3 (140-440); Red Cell Distribution Width 15.8 % (13.2-15.2); White Blood Count 8.1 K/mm3 (4.5-11.0)
[2016-09-24 05:48] LABS: Mean Corpuscular Hemoglobin 23 pg (28-32)
[2016-09-24 05:49] LABS: Anion Gap 21 mmol/L; BUN/Creatinine Ratio 33.33; Blood Urea Nitrogen 20 mg/dL (9-20); Calcium 9.4 mg/dL (8.4-10.2); Carbon Dioxide 25 mmol/L (22-30); Chloride 98.1 mmol/L (98-107); Glucose 119 mg/dL (75-100); Potassium 4.2 mmol/L (3.6-5.0); Sodium 140 mmol/L (137-145)
[2016-09-24] MEDS: APRESOLINE PO SCH ×3 (06:40→22:35)
[2016-09-24] MEDS: LOVENOX SUB-Q SCH (10:09)
[2016-09-24] MEDS: BABY ASPIRIN PO SCH (10:10)
[2016-09-24] MEDS: COZAAR PO SCH (10:10)
[2016-09-24] MEDS: PLAVIX PO SCH (10:10)
[2016-09-24] MEDS: PROCARDIA XL PO SCH ×2 (10:10→22:35)
[2016-09-24] MEDS ORDERED: BENADRYL IV PRN (22:28)
[2016-09-24] MEDS: ATIVAN IV PRN (22:38)
[2016-09-25] MEDS: APRESOLINE PO SCH ×3 (06:51→22:30)
[2016-09-25] MEDS: BABY ASPIRIN PO SCH (10:55)
[2016-09-25] MEDS: COZAAR PO SCH (10:56)
[2016-09-25] MEDS: LOVENOX SUB-Q SCH (10:56)
[2016-09-25] MEDS: PROCARDIA XL PO SCH ×2 (10:57→22:30)
[2016-09-25] MEDS: PLAVIX PO SCH (10:57)
[2016-09-25] MEDS: DULCOLAX PR PRN (10:57)
[2016-09-25] MEDS: ATIVAN IV PRN ×2 (11:13→16:10)
[2016-09-25] MEDS ORDERED: MILK OF MAGNESIA PO PRN (11:29)
[2016-09-25] MEDS: MILK OF MAGNESIA PO PRN (11:52)
--- NOTE | 2016-09-25 14:58 | Progress Note ---
Assessment and Plan Assessment and plan: --Acute CVA/left hemiplegia , Not a candidate for TPA, workup in progress MRI; Right cerebral hemisphere acute subacute infarcts involving the MCA and possible right DAVID territories MRA; occlusion versus high-grade partial thrombosis of the right anterior cerebral artery Neurology following, aspirin, Plavix and statin , physical therapy occupational therapy, subacute rehabilitation --Urinary retention; resolved, patient is incontinent at times has diapers, bladder training --Dyslipidemia continue lipid-lowering medications --Hypertension; well controlled, continue current antihypertensives and when necessary medications --Constipation; significantly improved with stool softeners, supportive care --DVT prophylaxis; Lovenox --Discharge Planning.; No payer source , awaiting placement Continue physical therapy occupational therapy rehabilitation History Interval history: Patient sleeping easily awakens No new events reported by the nursing staff oriented 3 not in acute distress Hospitalist Physical - Constitutional Vitals: Temp Pulse Resp BP Pulse Ox 98 F 112 H 16 167/87 98 09/25/16 12:20 09/25/16 12:20 09/25/16 12:20 09/25/16 12:20 09/25/16 07:25 General appearance: Present: no acute distress, well-nourished - EENT Eyes: Present: PERRL, EOM intact - Neck Neck: Present: supple, normal ROM - Respiratory Respiratory effort: normal Respiratory: negative: rales, rhonchi, wheezing - Cardiovascular Rhythm: regular Heart Sounds: Present: S1 & S2 - Extremities Extremities: no ischemia, No edema - Abdominal General gastrointestinal: soft, non-tender, non-distended, normal bowel sounds - Integumentary Integumentary: Present: clear, warm - Psychiatric Psychiatric: appropriate mood/affect, cooperative - Neurologic Neurologic: other (left-sided hemiplegia) Results - Labs CBC & Chem 7: 09/24/16 05:06 09/24/16 05:06 Labs: Laboratory Last Values WBC 8.1 K/mm3 (4.5-11.0) 09/24/16 05:06 RBC 5.80 M/mm3 (3.65-5.03) H 09/24/16 05:06 Hgb 13.1 gm/dl (11.8-15.2) 09/24/16 05:06 Hct 41.7 % (35.5-45.6) 09/24/16 05:06 MCV 72 fl (84-94) L 09/24/16 05:06 MCH 23 pg (28-32) L 09/24/16 05:06 MCHC 32 % (32-34) 09/24/16 05:06 RDW 15.8 % (13.2-15.2) H 09/24/16 05:06 Plt Count 348 K/mm3 (140-440) 09/24/16 05:06 Lymph % (Auto) 13.4 % (13.4-35.0) 09/24/16 05:06 [place] % (Auto) 10.7 % (0.0-7.3) H 09/24/16 05:06 Eos % (Auto) 0.8 % (0.0-4.3) 09/24/16 05:06 Baso % (Auto) 0.8 % (0.0-1.8) 09/24/16 05:06 Lymph # 1.1 K/mm3 (1.2-5.4) L 09/24/16 05:06 [place] # 0.9 K/mm3 (0.0-0.8) H 09/24/16 05:06 Eos # 0.1 K/mm3 (0.0-0.4) 09/24/16 05:06 Baso # 0.1 K/mm3 (0.0-0.1) 09/24/16 05:06 Seg Neutrophils % 74.3 % (40.0-70.0) H 09/24/16 05:06 Seg Neutrophils # 6.0 K/mm3 (1.8-7.7) 09/24/16 05:06 PT 13.5 Sec. (12.2-14.9) 09/13/16 08:20 INR 1.04 (0.87-1.13) 09/13/16 08:20 APTT 24.9 Sec. (24.2-36.6) 09/13/16 08:20 Thrombin Time 15.3 Sec. (15.1-19.6) 09/13/16 08:20 Sodium 140 mmol/L (137-145) 09/24/16 05:06 Potassium 4.2 mmol/L (3.6-5.0) 09/24/16 05:06 Chloride 98.1 mmol/L (98-107) 09/24/16 05:06 Carbon Dioxide 25 mmol/L (22-30) 09/24/16 05:06 Anion Gap 21 mmol/L 09/24/16 05:06 BUN 20 mg/dL (9-20) 09/24/16 05:06 Creatinine 0.6 mg/dL (0.8-1.5) L 09/24/16 05:06 Estimated GFR > 60 ml/min 09/24/16 05:06 BUN/Creatinine Ratio 33.33 % 09/24/16 05:06 Glucose 119 mg/dL (75-100) H 09/24/16 05:06 POC Glucose 119 (70-105) H 09/17/16 10:02 Calcium 9.4 mg/dL (8.4-10.2) 09/24/16 05:06 Troponin T < 0.010 ng/mL (0.00-0.029) 09/13/16 08:20 Triglycerides 94 mg/dL (2-149) 09/13/16 08:41 Cholesterol 254 mg/dL (50-199) H 09/13/16 08:41 LDL Cholesterol Direct 178 mg/dL (50-130) H 09/13/16 08:41 HDL Cholesterol 58 mg/dL (40-59) 09/13/16 08:41 Cholesterol/HDL Ratio 4.37 % 09/13/16 08:41
--- NOTE | 2016-09-25 14:58 | Progress Note ---
Assessment and Plan Assessment and plan: --Constipation; significantly improved with stool softeners, supportive care --Acute CVA/left hemiplegia , Not a candidate for TPA, workup in progress MRI; Right cerebral hemisphere acute subacute infarcts involving the MCA and possible right DAVID territories MRA; occlusion versus high-grade partial thrombosis of the right anterior cerebral artery Neurology following, aspirin, Plavix and statin , physical therapy occupational therapy, subacute rehabilitation --Urinary retention; resolved, patient is incontinent at times has diapers, bladder training --Dyslipidemia continue lipid-lowering medications --Hypertension; well controlled, continue current antihypertensives and when necessary medications --DVT prophylaxis; Lovenox --Discharge Planning.; No payer source , awaiting placement Continue physical therapy occupational therapy rehabilitation History Interval history: Patient [place] but no new complaints Having physical therapy Alert awake responding appropriately not in acute distress Hospitalist Physical - Constitutional Vitals: Temp Pulse Resp BP Pulse Ox 98 F 112 H 16 167/87 98 09/25/16 12:20 09/25/16 12:20 09/25/16 12:20 09/25/16 12:20 09/25/16 07:25 General appearance: Present: no acute distress, well-nourished - EENT Eyes: Present: PERRL, EOM intact - Neck Neck: Present: supple, normal ROM - Respiratory Respiratory effort: normal Respiratory: bilateral: diminished, negative: rales, rhonchi, wheezing, other - Cardiovascular Rhythm: regular Heart Sounds: Present: S1 & S2 - Extremities Extremities: no ischemia, pulses intact - Abdominal General gastrointestinal: soft, non-tender, non-distended, normal bowel sounds - Integumentary Integumentary: Present: clear, warm - Psychiatric Psychiatric: appropriate mood/affect, cooperative - Neurologic Neurologic: CNII-XII intact, moves all extremities Results - Labs CBC & Chem 7: 09/24/16 05:06 09/24/16 05:06 Labs: Laboratory Last Values WBC 8.1 K/mm3 (4.5-11.0) 09/24/16 05:06 RBC 5.80 M/mm3 (3.65-5.03) H 09/24/16 05:06 Hgb 13.1 gm/dl (11.8-15.2) 09/24/16 05:06 Hct 41.7 % (35.5-45.6) 09/24/16 05:06 MCV 72 fl (84-94) L 09/24/16 05:06 MCH 23 pg (28-32) L 09/24/16 05:06 MCHC 32 % (32-34) 09/24/16 05:06 RDW 15.8 % (13.2-15.2) H 09/24/16 05:06 Plt Count 348 K/mm3 (140-440) 09/24/16 05:06 Lymph % (Auto) 13.4 % (13.4-35.0) 09/24/16 05:06 [place] % (Auto) 10.7 % (0.0-7.3) H 09/24/16 05:06 Eos % (Auto) 0.8 % (0.0-4.3) 09/24/16 05:06 Baso % (Auto) 0.8 % (0.0-1.8) 09/24/16 05:06 Lymph # 1.1 K/mm3 (1.2-5.4) L 09/24/16 05:06 [place] # 0.9 K/mm3 (0.0-0.8) H 09/24/16 05:06 Eos # 0.1 K/mm3 (0.0-0.4) 09/24/16 05:06 Baso # 0.1 K/mm3 (0.0-0.1) 09/24/16 05:06 Seg Neutrophils % 74.3 % (40.0-70.0) H 09/24/16 05:06 Seg Neutrophils # 6.0 K/mm3 (1.8-7.7) 09/24/16 05:06 PT 13.5 Sec. (12.2-14.9) 09/13/16 08:20 INR 1.04 (0.87-1.13) 09/13/16 08:20 APTT 24.9 Sec. (24.2-36.6) 09/13/16 08:20 Thrombin Time 15.3 Sec. (15.1-19.6) 09/13/16 08:20 Sodium 140 mmol/L (137-145) 09/24/16 05:06 Potassium 4.2 mmol/L (3.6-5.0) 09/24/16 05:06 Chloride 98.1 mmol/L (98-107) 09/24/16 05:06 Carbon Dioxide 25 mmol/L (22-30) 09/24/16 05:06 Anion Gap 21 mmol/L 09/24/16 05:06 BUN 20 mg/dL (9-20) 09/24/16 05:06 Creatinine 0.6 mg/dL (0.8-1.5) L 09/24/16 05:06 Estimated GFR > 60 ml/min 09/24/16 05:06 BUN/Creatinine Ratio 33.33 % 09/24/16 05:06 Glucose 119 mg/dL (75-100) H 09/24/16 05:06 POC Glucose 119 (70-105) H 09/17/16 10:02 Calcium 9.4 mg/dL (8.4-10.2) 09/24/16 05:06 Troponin T < 0.010 ng/mL (0.00-0.029) 09/13/16 08:20 Triglycerides 94 mg/dL (2-149) 09/13/16 08:41 Cholesterol 254 mg/dL (50-199) H 09/13/16 08:41 LDL Cholesterol Direct 178 mg/dL (50-130) H 09/13/16 08:41 HDL Cholesterol 58 mg/dL (40-59) 09/13/16 08:41 Cholesterol/HDL Ratio 4.37 % 09/13/16 08:41
[2016-09-26] MEDS: ZOFRAN IV PRN ×2 (00:23→10:59)
[2016-09-26] MEDS: APRESOLINE IV PRN (00:24)
[2016-09-26] MEDS: ATIVAN IV PRN (00:24)
[2016-09-26] MEDS: APRESOLINE PO SCH ×3 (05:47→22:21)
[2016-09-26] MEDS: LOVENOX SUB-Q SCH (10:56)
[2016-09-26] MEDS: PLAVIX PO SCH (10:56)
[2016-09-26] MEDS: BABY ASPIRIN PO SCH (10:56)
[2016-09-26] MEDS: COZAAR PO SCH (10:56)
[2016-09-26] MEDS: MILK OF MAGNESIA PO PRN (10:57)
[2016-09-26] MEDS: PROCARDIA XL PO SCH ×2 (10:57→22:21)
[2016-09-26] MEDS: TYLENOL PO PRN (10:57)
--- NOTE | 2016-09-26 16:45 | Progress Note ---
Assessment and Plan Assessment and plan: --Acute CVA/left hemiplegia , Not a candidate for TPA, workup in progress MRI; Right cerebral hemisphere acute subacute infarcts involving the MCA and possible right DAVID territories MRA; occlusion versus high-grade partial thrombosis of the right anterior cerebral artery aspirin, Plavix and statin , physical therapy occupational therapy, subacute rehabilitation --Dyslipidemia continue lipid-lowering medications --Hypertension; well controlled, continue current antihypertensives and when necessary medications --DVT prophylaxis; Lovenox Physical therapy occupational therapy rehabilitation --Discharge Planning.; No payer source , awaiting placement Continue physical therapy occupational therapy rehabilitation Medically stable for discharge to subacute versus jail facility History Interval history: Patient feels better no new complaints Requiring restraints in the night as he is getting out of the bed Today he is feeling much better and more alert and awake and responding appropriately Awaiting placement Hospitalist Physical - Constitutional Vitals: Temp Pulse Resp BP Pulse Ox 99.1 F 98 H 18 130/78 98 09/26/16 08:14 09/26/16 10:56 09/26/16 08:14 09/26/16 10:56 09/26/16 08:14 General appearance: Present: no acute distress, well-nourished - EENT Eyes: Present: PERRL, EOM intact - Neck Neck: Present: supple, normal ROM - Respiratory Respiratory effort: normal Respiratory: negative: rales, rhonchi, wheezing - Cardiovascular Rhythm: regular Heart Sounds: Present: S1 & S2 - Extremities Extremities: no ischemia, pulses intact, pulses symmetrical Peripheral Pulses: within normal limits - Abdominal General gastrointestinal: soft, non-tender, non-distended, normal bowel sounds - Integumentary Integumentary: Present: clear, warm - Psychiatric Psychiatric: appropriate mood/affect, cooperative - Neurologic Neurologic: other (left hemiplegia) - Allied Health Allied health notes reviewed: PT, ST, OT Results - Labs CBC & Chem 7: 09/24/16 05:06 09/24/16 05:06 Labs: Laboratory Last Values WBC 8.1 K/mm3 (4.5-11.0) 09/24/16 05:06 RBC 5.80 M/mm3 (3.65-5.03) H 09/24/16 05:06 Hgb 13.1 gm/dl (11.8-15.2) 09/24/16 05:06 Hct 41.7 % (35.5-45.6) 09/24/16 05:06 MCV 72 fl (84-94) L 09/24/16 05:06 MCH 23 pg (28-32) L 09/24/16 05:06 MCHC 32 % (32-34) 09/24/16 05:06 RDW 15.8 % (13.2-15.2) H 09/24/16 05:06 Plt Count 348 K/mm3 (140-440) 09/24/16 05:06 Lymph % (Auto) 13.4 % (13.4-35.0) 09/24/16 05:06 [place] % (Auto) 10.7 % (0.0-7.3) H 09/24/16 05:06 Eos % (Auto) 0.8 % (0.0-4.3) 09/24/16 05:06 Baso % (Auto) 0.8 % (0.0-1.8) 09/24/16 05:06 Lymph # 1.1 K/mm3 (1.2-5.4) L 09/24/16 05:06 [place] # 0.9 K/mm3 (0.0-0.8) H 09/24/16 05:06 Eos # 0.1 K/mm3 (0.0-0.4) 09/24/16 05:06 Baso # 0.1 K/mm3 (0.0-0.1) 09/24/16 05:06 Seg Neutrophils % 74.3 % (40.0-70.0) H 09/24/16 05:06 Seg Neutrophils # 6.0 K/mm3 (1.8-7.7) 09/24/16 05:06 PT 13.5 Sec. (12.2-14.9) 09/13/16 08:20 INR 1.04 (0.87-1.13) 09/13/16 08:20 APTT 24.9 Sec. (24.2-36.6) 09/13/16 08:20 Thrombin Time 15.3 Sec. (15.1-19.6) 09/13/16 08:20 Sodium 140 mmol/L (137-145) 09/24/16 05:06 Potassium 4.2 mmol/L (3.6-5.0) 09/24/16 05:06 Chloride 98.1 mmol/L (98-107) 09/24/16 05:06 Carbon Dioxide 25 mmol/L (22-30) 09/24/16 05:06 Anion Gap 21 mmol/L 09/24/16 05:06 BUN 20 mg/dL (9-20) 09/24/16 05:06 Creatinine 0.6 mg/dL (0.8-1.5) L 09/24/16 05:06 Estimated GFR > 60 ml/min 09/24/16 05:06 BUN/Creatinine Ratio 33.33 % 09/24/16 05:06 Glucose 119 mg/dL (75-100) H 09/24/16 05:06 POC Glucose 119 (70-105) H 09/17/16 10:02 Calcium 9.4 mg/dL (8.4-10.2) 09/24/16 05:06 Troponin T < 0.010 ng/mL (0.00-0.029) 09/13/16 08:20 Triglycerides 94 mg/dL (2-149) 09/13/16 08:41 Cholesterol 254 mg/dL (50-199) H 09/13/16 08:41 LDL Cholesterol Direct 178 mg/dL (50-130) H 09/13/16 08:41 HDL Cholesterol 58 mg/dL (40-59) 09/13/16 08:41 Cholesterol/HDL Ratio 4.37 % 09/13/16 08:41
[2016-09-26] MEDS: BENADRYL PO PRN (22:21)
[2016-09-27] MEDS: APRESOLINE PO SCH ×3 (07:00→21:58)
[2016-09-27] MEDS: COZAAR PO SCH (09:19)
[2016-09-27] MEDS: PLAVIX PO SCH (09:20)
[2016-09-27] MEDS: BABY ASPIRIN PO SCH (09:20)
[2016-09-27] MEDS: PROCARDIA XL PO SCH ×2 (09:42→21:56)
[2016-09-27] MEDS: LOVENOX SUB-Q SCH (09:43)
--- NOTE | 2016-09-27 09:55 | Progress Note ---
Assessment and Plan Assessment and plan: --Right MCA acute CVA Aspirin Plavix and statin , supportive care, physical therapy occupational therapy --Left-sided hemiplegia; physical therapy occupational therapy subacute rehabilitation --Dyslipidemia; stable on lipid-lowering medications --Hypertension; well controlled, continue current antihypertensives and when necessary medications --DVT prophylaxis; Lovenox Physical therapy occupational therapy rehabilitation Social issues --DC planning per case management; difficult to place, no payor source Plan of care discussed with the patient, his nurse and the case management Patient is medically stable for discharge to subacute rehabilitation when set up - History Interval history: Patient seen and evaluated medical records reviewed Complains of mild dizziness during PT, PT was held Alert awake oriented 3 not in acute distress Hospitalist Physical - Constitutional Vitals: Temp Pulse Resp BP Pulse Ox 98.7 F 102 H 20 161/94 97 09/27/16 08:22 09/27/16 08:22 09/27/16 08:22 09/27/16 09:19 09/27/16 08:22 General appearance: Present: no acute distress, well-nourished - EENT Eyes: Present: PERRL, EOM intact - Neck Neck: Present: supple, normal ROM - Respiratory Respiratory effort: normal Respiratory: negative: diminished, rales, rhonchi, wheezing - Cardiovascular Rhythm: regular Heart Sounds: Present: S1 & S2 - Extremities Extremities: no ischemia, No edema Extremity abnormal: edema - Abdominal General gastrointestinal: soft, non-tender, non-distended, normal bowel sounds - Integumentary Integumentary: Present: clear, warm - Psychiatric Psychiatric: appropriate mood/affect, cooperative - Neurologic Neurologic: other (left hemiplegia) Results - Labs CBC & Chem 7: 09/24/16 05:06 09/24/16 05:06 Labs: Laboratory Last Values WBC 8.1 K/mm3 (4.5-11.0) 09/24/16 05:06 RBC 5.80 M/mm3 (3.65-5.03) H 09/24/16 05:06 Hgb 13.1 gm/dl (11.8-15.2) 09/24/16 05:06 Hct 41.7 % (35.5-45.6) 09/24/16 05:06 MCV 72 fl (84-94) L 09/24/16 05:06 MCH 23 pg (28-32) L 09/24/16 05:06 MCHC 32 % (32-34) 09/24/16 05:06 RDW 15.8 % (13.2-15.2) H 09/24/16 05:06 Plt Count 348 K/mm3 (140-440) 09/24/16 05:06 Lymph % (Auto) 13.4 % (13.4-35.0) 09/24/16 05:06 [place] % (Auto) 10.7 % (0.0-7.3) H 09/24/16 05:06 Eos % (Auto) 0.8 % (0.0-4.3) 09/24/16 05:06 Baso % (Auto) 0.8 % (0.0-1.8) 09/24/16 05:06 Lymph # 1.1 K/mm3 (1.2-5.4) L 09/24/16 05:06 [place] # 0.9 K/mm3 (0.0-0.8) H 09/24/16 05:06 Eos # 0.1 K/mm3 (0.0-0.4) 09/24/16 05:06 Baso # 0.1 K/mm3 (0.0-0.1) 09/24/16 05:06 Seg Neutrophils % 74.3 % (40.0-70.0) H 09/24/16 05:06 Seg Neutrophils # 6.0 K/mm3 (1.8-7.7) 09/24/16 05:06 PT 13.5 Sec. (12.2-14.9) 09/13/16 08:20 INR 1.04 (0.87-1.13) 09/13/16 08:20 APTT 24.9 Sec. (24.2-36.6) 09/13/16 08:20 Thrombin Time 15.3 Sec. (15.1-19.6) 09/13/16 08:20 Sodium 140 mmol/L (137-145) 09/24/16 05:06 Potassium 4.2 mmol/L (3.6-5.0) 09/24/16 05:06 Chloride 98.1 mmol/L (98-107) 09/24/16 05:06 Carbon Dioxide 25 mmol/L (22-30) 09/24/16 05:06 Anion Gap 21 mmol/L 09/24/16 05:06 BUN 20 mg/dL (9-20) 09/24/16 05:06 Creatinine 0.6 mg/dL (0.8-1.5) L 09/24/16 05:06 Estimated GFR > 60 ml/min 09/24/16 05:06 BUN/Creatinine Ratio 33.33 % 09/24/16 05:06 Glucose 119 mg/dL (75-100) H 09/24/16 05:06 POC Glucose 119 (70-105) H 09/17/16 10:02 Calcium 9.4 mg/dL (8.4-10.2) 09/24/16 05:06 Troponin T < 0.010 ng/mL (0.00-0.029) 09/13/16 08:20 Triglycerides 94 mg/dL (2-149) 09/13/16 08:41 Cholesterol 254 mg/dL (50-199) H 09/13/16 08:41 LDL Cholesterol Direct 178 mg/dL (50-130) H 09/13/16 08:41 HDL Cholesterol 58 mg/dL (40-59) 09/13/16 08:41 Cholesterol/HDL Ratio 4.37 % 09/13/16 08:41
[2016-09-27] MEDS: BENADRYL PO PRN (21:56)
[2016-09-27] MEDS: ATIVAN IV PRN (22:00)
[2016-09-27] MEDS: TYLENOL PO PRN (22:39)
[2016-09-28] MEDS: TYLENOL PO PRN ×2 (06:01→21:47)
[2016-09-28] MEDS: APRESOLINE PO SCH ×3 (06:02→21:47)
[2016-09-28] MEDS: PLAVIX PO SCH (10:57)
[2016-09-28] MEDS: COZAAR PO SCH (10:58)
[2016-09-28] MEDS: PROCARDIA XL PO SCH ×2 (10:58→21:46)
[2016-09-28] MEDS: BABY ASPIRIN PO SCH (10:59)
[2016-09-28] MEDS: LOVENOX SUB-Q SCH (11:00)
--- NOTE | 2016-09-28 14:44 | Progress Note ---
Assessment and Plan Assessment and plan: Patient is a 56-year-old man history of diabetes mellitus type 2, GERD, hypertension, coronary artery disease status post CABG February 2006 and CVA who presents with difficulty in speech on 09/13/2016. On 09/17/2016 MRI brain without contrast reported as right cerebellar hemisphere acute/subacute infarctions involving MCA and some possible right DAVID territories, approximate 7 mm left cerebellar lacunar infarct again noted. MRA head without contrast reported as occlusion versus high-grade partial thrombus right anterior cerebral artery. Patient was evaluated by Dr. Bess, neurologist. On 05/2016 transthoracic echocardiogram report as global left ventricular systolic function is normal, estimated EF is 55-60%. Teleneurology was used upon admission and patient was not a candidate for TPA as he just had a CVA 3 weeks ago per Teleneurology charting. -Acute CVA with ischemic infarct: Continue treatment with antiplatelets and statins -Type 2 diabetes mellitus: Start scale insulin, ADA diet -Malignant hypertension, blood pressure was 220/118: Continue IV when necessary antihypertensive -Dyslipidemia: treat with statins -DVT prophylaxis: Subcutaneous Lovenox Full code Disposition: Awaiting placement, patient doesn't have insurance New issue, temperature 100.4F overnight: Get blood cultures 2 sets, urinalysis , urine culture and chest chest x-ray, order a.m. labs History Interval history: Patient seen and examined. Follow up on current diagnosis/altered mental status. Overnight uneventful. No cp, sob, n/v or severe headaches. Imaging, old records, testing, labs, nursing notes reviewed. Hospitalist Physical - Physical exam Narrative exam: GEN: WDWN, NAD, AWAKE, ALERT, ORIENTATED x 2, he thought the year was 2014, in restraints HEENT: NCAT, PERRL, EOMI, OP CLEAR NECK: SUPPLE, NO THYROMEGALY, NO JVD, NO LAD CVS: RRR, NORMAL S1S2 LUNGS/CHEST: CTA B, NORMAL CHEST EXPANSION B, GOOD AIR ENTRY B ABD: SOFT, NTND, GBS, NO REBOUND OR GUARDING EXT/SKIN: NO SIGNIFICANT EDEMA OR RASH MSK: Left side not moving NEURO: CN 2-12 GROSSLY INTACT, left hemiparesis and dysarthria, NO NEW FOCAL DEFICITS PSY: Anxious - Constitutional Vitals: Temp Pulse Resp BP Pulse Ox 97.5 F L 90 20 145/81 97 08/15/17 08:00 09/28/16 10:58 09/28/16 09:00 09/28/16 10:58 09/28/16 09:00 General appearance: Present: no acute distress, well-nourished Results - Labs CBC & Chem 7: 09/24/16 05:06 09/24/16 05:06 Labs: Laboratory Last Values WBC 8.1 K/mm3 (4.5-11.0) 09/24/16 05:06 RBC 5.80 M/mm3 (3.65-5.03) H 09/24/16 05:06 Hgb 13.1 gm/dl (11.8-15.2) 09/24/16 05:06 Hct 41.7 % (35.5-45.6) 09/24/16 05:06 MCV 72 fl (84-94) L 09/24/16 05:06 MCH 23 pg (28-32) L 09/24/16 05:06 MCHC 32 % (32-34) 09/24/16 05:06 RDW 15.8 % (13.2-15.2) H 09/24/16 05:06 Plt Count 348 K/mm3 (140-440) 09/24/16 05:06 Lymph % (Auto) 13.4 % (13.4-35.0) 09/24/16 05:06 [place] % (Auto) 10.7 % (0.0-7.3) H 09/24/16 05:06 Eos % (Auto) 0.8 % (0.0-4.3) 09/24/16 05:06 Baso % (Auto) 0.8 % (0.0-1.8) 09/24/16 05:06 Lymph # 1.1 K/mm3 (1.2-5.4) L 09/24/16 05:06 [place] # 0.9 K/mm3 (0.0-0.8) H 09/24/16 05:06 Eos # 0.1 K/mm3 (0.0-0.4) 09/24/16 05:06 Baso # 0.1 K/mm3 (0.0-0.1) 09/24/16 05:06 Seg Neutrophils % 74.3 % (40.0-70.0) H 09/24/16 05:06 Seg Neutrophils # 6.0 K/mm3 (1.8-7.7) 09/24/16 05:06 PT 13.5 Sec. (12.2-14.9) 09/13/16 08:20 INR 1.04 (0.87-1.13) 09/13/16 08:20 APTT 24.9 Sec. (24.2-36.6) 09/13/16 08:20 Thrombin Time 15.3 Sec. (15.1-19.6) 09/13/16 08:20 Sodium 140 mmol/L (137-145) 09/24/16 05:06 Potassium 4.2 mmol/L (3.6-5.0) 09/24/16 05:06 Chloride 98.1 mmol/L (98-107) 09/24/16 05:06 Carbon Dioxide 25 mmol/L (22-30) 09/24/16 05:06 Anion Gap 21 mmol/L 09/24/16 05:06 BUN 20 mg/dL (9-20) 09/24/16 05:06 Creatinine 0.6 mg/dL (0.8-1.5) L 09/24/16 05:06 Estimated GFR > 60 ml/min 09/24/16 05:06 BUN/Creatinine Ratio 33.33 % 09/24/16 05:06 Glucose 119 mg/dL (75-100) H 09/24/16 05:06 POC Glucose 119 (70-105) H 09/17/16 10:02 Calcium 9.4 mg/dL (8.4-10.2) 09/24/16 05:06 Troponin T < 0.010 ng/mL (0.00-0.029) 09/13/16 08:20 Triglycerides 94 mg/dL (2-149) 09/13/16 08:41 Cholesterol 254 mg/dL (50-199) H 09/13/16 08:41 LDL Cholesterol Direct 178 mg/dL (50-130) H 09/13/16 08:41 HDL Cholesterol 58 mg/dL (40-59) 09/13/16 08:41 Cholesterol/HDL Ratio 4.37 % 09/13/16 08:41
--- NOTE | 2016-09-28 15:10 | XRay Report ---
AP CHEST: HISTORY: Pneumonia, shortness of breath AP view of the chest demonstrates a normal mediastinal and cardiac contour with clear lungs and normal bony and soft tissue structures. IMPRESSION: Unremarkable AP chest.
[2016-09-28] MEDS: BENADRYL PO PRN (21:47)
[2016-09-29 02:56] LABS: Bacteria,Urine 1+ /HPF (Negative); Bilirubin,Urine NEG (Negative); Blood,Urine NEG (Negative); Ketones,Urine NEG (Negative); Leukocyte Esterase,Urine NEG (Negative); Nitrite,Urine NEG (Negative); Protein,Urine <15 mg/dL mg/dL (Negative); Urobilinogen,Urine < 2.0 mg/dL (<2.0)
[2016-09-29 05:17] LABS: Hematocrit 38.5 % (35.5-45.6); Hemoglobin 11.9 gm/dl (11.8-15.2); Mean Corpuscular HGB Conc 31 % (32-34); Mean Corpuscular Volume 72 fl (84-94); Platelet Count 337 K/mm3 (140-440); Red Blood Count 5.32 M/mm3 (3.65-5.03); Red Cell Distribution Width 15.6 % (13.2-15.2); White Blood Count 9.4 K/mm3 (4.5-11.0)
[2016-09-29 05:22] LABS: Mean Corpuscular Hemoglobin 22 pg (28-32)
[2016-09-29 05:29] LABS: Anion Gap 20 mmol/L; BUN/Creatinine Ratio 25.55; Blood Urea Nitrogen 23 mg/dL (9-20); Calcium 8.9 mg/dL (8.4-10.2); Carbon Dioxide 26 mmol/L (22-30); Chloride 94.4 mmol/L (98-107); Glucose 116 mg/dL (75-100); Sodium 136 mmol/L (137-145)
[2016-09-29] MEDS: APRESOLINE PO SCH ×3 (05:56→22:06)
[2016-09-29] MEDS: ZOFRAN IV PRN ×2 (08:57→20:39)
[2016-09-29] MEDS: LOVENOX SUB-Q SCH (10:19)
[2016-09-29] MEDS: PROCARDIA XL PO SCH ×2 (11:46→22:06)
[2016-09-29] MEDS: BABY ASPIRIN PO SCH (11:47)
[2016-09-29] MEDS: PLAVIX PO SCH (11:47)
[2016-09-29] MEDS: COZAAR PO SCH (11:47)
--- NOTE | 2016-09-29 12:09 | Consultation ---
History of Present Illness - Reason for Consult Consult date: 09/29/16 stroke - History of Present Illness patient is much more alert and conscious able to mov the left side better the stroke is resolving at this time and he is more cooperate with rehab Past History Past Medical History: diabetes, hypertension, other Past Surgical History: CABG Social history: Lives alone Family history: CAD Medications and Allergies Allergies Allergy/AdvReac Type Severity Reaction Status Date / Time No Known Allergies Allergy Verified 09/13/16 09:38 Home Medications Medication Instructions Recorded Confirmed Last Taken Type Aspirin [Aspirin BABY CHEW TAB] 81 mg PO QDAY 09/13/16 09/13/16 Unknown History Olmesartan (Nf) [Benicar (Nf)] 5 mg PO QDAY 09/13/16 09/13/16 Unknown History Active Meds: Active Medications Acetaminophen (Tylenol) 650 mg PO Q4H PRN PRN Reason: Pain MILD(1-3)/Fever >100.5/TAYLOR Last Admin: 09/28/16 21:47 Dose: 650 mg Aspirin (Baby Aspirin) 81 mg PO DAILY [facility] Last Admin: 09/29/16 11:47 Dose: 81 mg Atorvastatin Calcium (Lipitor) 80 mg PO QHS [facility] Last Admin: 09/28/16 21:46 Dose: 80 mg Bisacodyl (Dulcolax) 10 mg MO QDAY PRN PRN Reason: Constipation unrelieved by MOM Last Admin: 09/25/16 10:57 Dose: 10 mg Clopidogrel Bisulfate (Plavix) 75 mg PO QDAY [facility] Last Admin: 09/29/16 11:47 Dose: 75 mg Diphenhydramine HCl (Benadryl) 25 mg IV Q6H PRN PRN Reason: Itching Diphenhydramine HCl (Benadryl) 25 mg PO Q6H PRN PRN Reason: Itching Last Admin: 09/28/16 21:47 Dose: 25 mg Enoxaparin Sodium (Lovenox) 40 mg SUB-Q QDAY@1000 [facility] Last Admin: 09/29/16 10:19 Dose: 40 mg Hydralazine HCl (Apresoline) 20 mg IV Q4H PRN PRN Reason: Blood Pressure Last Admin: 09/26/16 00:24 Dose: 20 mg Hydralazine HCl (Apresoline) 100 mg PO Q8HR [facility] Last Admin: 09/29/16 05:56 Dose: 100 mg Lorazepam (Ativan) 1 mg IV Q4H PRN PRN Reason: Agitation Last Admin: 09/27/16 22:00 Dose: 1 mg Losartan Potassium (Cozaar) 50 mg PO QDAY [facility] Last Admin: 09/29/16 11:47 Dose: 50 mg Magnesium Hydroxide (Milk Of Magnesia) 30 ml PO QDAY PRN PRN Reason: Constipation Last Admin: 09/26/16 10:57 Dose: 30 ml Nifedipine (Procardia Xl) 30 mg PO Q12HR [facility] Last Admin: 09/29/16 11:46 Dose: 30 mg Ondansetron HCl (Zofran) 4 mg IV Q8H PRN PRN Reason: N/V unrelieved by Gregory Last Admin: 09/29/16 08:57 Dose: 4 mg Exam - Constitutional Vitals: Temp Pulse Resp BP Pulse Ox 99.7 F H 92 H 22 166/87 97 09/29/16 07:20 09/29/16 11:47 09/29/16 07:20 09/29/16 11:47 09/29/16 07:20 Results - Labs CBC & Chem 7: 09/29/16 03:59 09/29/16 03:59 Labs: Abnormal lab results 09/29/16 09/29/16 Range/Units 03:59 03:59 RBC 5.32 H (3.65-5.03) M/mm3 MCV 72 L (84-94) fl MCH 22 L (28-32) pg MCHC 31 L (32-34) % RDW 15.6 H (13.2-15.2) % Sodium 136 L (137-145) mmol/L Chloride 94.4 L (98-107) mmol/L BUN 23 H (9-20) mg/dL Glucose 116 H (75-100) mg/dL
--- NOTE | 2016-09-29 15:11 | Progress Note ---
Assessment and Plan Assessment and plan: Patient is a 56-year-old man history of diabetes mellitus type 2, GERD, hypertension, coronary artery disease status post CABG February 2006 and CVA who presents with difficulty in speech on 09/13/2016. On 09/17/2016 MRI brain without contrast reported as right cerebellar hemisphere acute/subacute infarctions involving MCA and some possible right DAVID territories, approximate 7 mm left cerebellar lacunar infarct again noted. MRA head without contrast reported as occlusion versus high-grade partial thrombus right anterior cerebral artery. Patient was evaluated by Dr. Bess, neurologist. On 05/2016 transthoracic echocardiogram report as global left ventricular systolic function is normal, estimated EF is 55-60%. Teleneurology was used upon admission and patient was not a candidate for TPA as he just had a CVA 3 weeks ago per Teleneurology charting. -Acute CVA with ischemic infarct: Continue treatment with antiplatelets and statins -Acute encephalopathy, poa now resolved, d/c restraints today. -Type 2 diabetes mellitus: Start scale insulin, ADA diet -Malignant hypertension, blood pressure was 220/118: Continue IV when necessary antihypertensive -Dyslipidemia: treat with statins -DVT prophylaxis: Subcutaneous Lovenox Full code Disposition: Awaiting placement, patient doesn't have insurance==> unable to be placed, if cultures negative will d/c tomorrow 09/28/16: temperature 100.4F overnight: Get blood cultures 2 sets, urinalysis, urine culture and chest chest x-ray, order a.m. labs==>ua and cxr negative, follow blood cultures 09/29/16: new issue n/v, get kub History Interval history: Patient seen and examined. Follow up on current diagnosis/altered mental status. Overnight uneventful. No cp, sob, or severe headaches. Imaging, old records, testing, labs, nursing notes reviewed. He had n/v this morning without ab pain. Hospitalist Physical - Physical exam Narrative exam: GEN: WDWN, NAD, AWAKE, ALERT, ORIENTATED x 3 HEENT: NCAT, PERRL, EOMI, OP CLEAR NECK: SUPPLE, NO THYROMEGALY, NO JVD, NO LAD CVS: RRR, NORMAL S1S2 LUNGS/CHEST: CTA B, NORMAL CHEST EXPANSION B, GOOD AIR ENTRY B ABD: SOFT, NTND, GBS, NO REBOUND OR GUARDING EXT/SKIN: NO SIGNIFICANT EDEMA OR RASH, virtilgo scalp also MSK: Left side not moving NEURO: CN 2-12 GROSSLY INTACT, left hemiparesis and dysarthria, NO NEW FOCAL DEFICITS PSY: calm - Constitutional Vitals: Temp Pulse Resp BP Pulse Ox 99.7 F H 92 H 22 166/87 97 09/29/16 07:20 09/29/16 11:47 09/29/16 07:20 09/29/16 11:47 09/29/16 07:20 General appearance: Present: no acute distress, well-nourished Results - Labs CBC & Chem 7: 09/29/16 03:59 09/29/16 03:59 Labs: Laboratory Last Values WBC 9.4 K/mm3 (4.5-11.0) 09/29/16 03:59 RBC 5.32 M/mm3 (3.65-5.03) H 09/29/16 03:59 Hgb 11.9 gm/dl (11.8-15.2) 09/29/16 03:59 Hct 38.5 % (35.5-45.6) 09/29/16 03:59 MCV 72 fl (84-94) L 09/29/16 03:59 MCH 22 pg (28-32) L 09/29/16 03:59 MCHC 31 % (32-34) L 09/29/16 03:59 RDW 15.6 % (13.2-15.2) H 09/29/16 03:59 Plt Count 337 K/mm3 (140-440) 09/29/16 03:59 Lymph % (Auto) 13.4 % (13.4-35.0) 09/24/16 05:06 Moore % (Auto) 10.7 % (0.0-7.3) H 09/24/16 05:06 Eos % (Auto) 0.8 % (0.0-4.3) 09/24/16 05:06 Baso % (Auto) 0.8 % (0.0-1.8) 09/24/16 05:06 Lymph # 1.1 K/mm3 (1.2-5.4) L 09/24/16 05:06 Moore # 0.9 K/mm3 (0.0-0.8) H 09/24/16 05:06 Eos # 0.1 K/mm3 (0.0-0.4) 09/24/16 05:06 Baso # 0.1 K/mm3 (0.0-0.1) 09/24/16 05:06 Seg Neutrophils % 74.3 % (40.0-70.0) H 09/24/16 05:06 Seg Neutrophils # 6.0 K/mm3 (1.8-7.7) 09/24/16 05:06 PT 13.5 Sec. (12.2-14.9) 09/13/16 08:20 INR 1.04 (0.87-1.13) 09/13/16 08:20 APTT 24.9 Sec. (24.2-36.6) 09/13/16 08:20 Thrombin Time 15.3 Sec. (15.1-19.6) 09/13/16 08:20 Sodium 136 mmol/L (137-145) L 09/29/16 03:59 Potassium 4.0 mmol/L (3.6-5.0) 09/29/16 03:59 Chloride 94.4 mmol/L (98-107) L 09/29/16 03:59 Carbon Dioxide 26 mmol/L (22-30) 09/29/16 03:59 Anion Gap 20 mmol/L 09/29/16 03:59 BUN 23 mg/dL (9-20) H 09/29/16 03:59 Creatinine 0.9 mg/dL (0.8-1.5) 09/29/16 03:59 Estimated GFR > 60 ml/min 09/29/16 03:59 BUN/Creatinine Ratio 25.55 % 09/29/16 03:59 Glucose 116 mg/dL (75-100) H 09/29/16 03:59 POC Glucose 119 (70-105) H 09/17/16 10:02 Calcium 8.9 mg/dL (8.4-10.2) 09/29/16 03:59 Troponin T < 0.010 ng/mL (0.00-0.029) 09/13/16 08:20 Triglycerides 94 mg/dL (2-149) 09/13/16 08:41 Cholesterol 254 mg/dL (50-199) H 09/13/16 08:41 LDL Cholesterol Direct 178 mg/dL (50-130) H 09/13/16 08:41 HDL Cholesterol 58 mg/dL (40-59) 09/13/16 08:41 Cholesterol/HDL Ratio 4.37 % 09/13/16 08:41 Urine Color Yellow (Yellow) 09/29/16 02:31 Urine Turbidity Clear (Clear) 09/29/16 02:31 Urine pH 5.0 (5.0-7.0) 09/29/16 02:31 Ur Specific [place] 1.014 (1.003-1.030) 09/29/16 02:31 Urine Protein <15 mg/dl mg/dL (Negative) 09/29/16 02:31 Urine Glucose (UA) Neg mg/dL (Negative) 09/29/16 02:31 Urine Ketones Neg mg/dL (Negative) 09/29/16 02:31 Urine Blood Neg (Negative) 09/29/16 02:31 Urine Nitrite Neg (Negative) 09/29/16 02:31 Urine Bilirubin Neg (Negative) 09/29/16 02:31 Urine Urobilinogen < 2.0 mg/dL (<2.0) 09/29/16 02:31 Ur Leukocyte Esterase Neg (Negative) 09/29/16 02:31 Urine WBC (Auto) 1.0 /HPF (0.0-6.0) 09/29/16 02:31 Urine RBC (Auto) 3.0 /HPF (0.0-6.0) 09/29/16 02:31 U Epithel Cells (Auto) < 1.0 /HPF (0-13.0) 09/29/16 02:31 Urine Bacteria (Auto) 1+ /HPF (Negative) 09/29/16 02:31
--- NOTE | 2016-09-29 15:40 | XRay Report ---
AP abdomen: Nausea/vomiting. Abdominal gas and soft tissue pattern is unremarkable. No free air noted. No calcifications. Significant degenerative disease of the right hip. Proliferative degenerative changes involving the lower 3 lumbar apophyseal joints. No prior study for comparison. Impression: No acute findings.
[2016-09-29] MEDS: APRESOLINE IV PRN (20:39)
[2016-09-29] MEDS: MILK OF MAGNESIA PO PRN (22:05)
[2016-09-29] MEDS: BENADRYL PO PRN (22:07)
[2016-09-30] MEDS: ATIVAN IV PRN (00:46)
[2016-09-30] MEDS: APRESOLINE PO SCH (06:46)
[2016-09-30] MEDS: COZAAR PO SCH (09:04)
[2016-09-30] MEDS: PROCARDIA XL PO SCH (09:04)
[2016-09-30] MEDS: PLAVIX PO SCH (09:04)
[2016-09-30 09:05] VITALS: BP 150/80
[2016-09-30] MEDS: LOVENOX SUB-Q SCH (09:05)
[2016-09-30] MEDS: BABY ASPIRIN PO SCH (09:05)
[2016-09-30] MEDS: MILK OF MAGNESIA PO PRN (09:05)
--- NOTE | 2016-09-30 10:14 | Discharge Summary ---
Providers - Providers Date of Admission: 09/13/16 09:34 Date of discharge: 09/30/16 Attending physician: KAYLA SIMS 09/13/16 10:14 Occupational Therapy Evaluate and Treat [CONS] Routine Comment: Reason For Exam: CVA Physical Therapy Evaluation and Treat [CONS] Routine Comment: Reason For Exam: CVA 09/13/16 10:15 Consult to Physician [CONS] Routine Consulting Provider: INDIO BESS Reason For Exam: CVA Place consult to:: yes Notified:: yes Phone number called:: yes Was contact made?: Yes 09/13/16 14:22 Speech Therapy Evaluation and Treat [CONS] Routine Reason For Exam: stroke 09/15/16 11:01 Consult to Dietitian/Nutrition [CONS] Routine Physician Instructions: Reason For Exam: Reason for Consult: lakeisha score 15 Primary care physician: BRAZE OPERATOR Hospitalization Condition: Stable Hospital course: Patient is a 56-year-old man history of diabetes mellitus type 2, GERD, hypertension, coronary artery disease status post CABG February 2006 and CVA who presents with difficulty in speech on 09/13/2016. On 09/17/2016 MRI brain without contrast reported as right cerebellar hemisphere acute/subacute infarctions involving MCA and some possible right DAVID territories, approximate 7 mm left cerebellar lacunar infarct again noted. MRA head without contrast reported as occlusion versus high-grade partial thrombus right anterior cerebral artery. Patient was evaluated by Dr. Bess, neurologist. On 05/2016 transthoracic echocardiogram report as global left ventricular systolic function is normal, estimated EF is 55-60%. Teleneurology was used upon admission and patient was not a candidate for TPA as he just had a CVA 3 weeks ago per Teleneurology charting. -Acute CVA with ischemic infarct: Continue treatment with antiplatelets and statins -Acute encephalopathy, poa now resolved, d/c restraints today. -Type 2 diabetes mellitus: Start scale insulin, ADA diet -Malignant hypertension, blood pressure was 220/118: Continue IV when necessary antihypertensive -Dyslipidemia: treat with statins -DVT prophylaxis: Subcutaneous Lovenox Full code Disposition: Awaiting placement, patient doesn't have insurance==> unable to be placed, cultures negative will d/c 09/28/16: temperature 100.4F overnight: Get blood cultures 2 sets, urinalysis, urine culture and chest chest x-ray, order a.m. labs==>ua and cxr negative, follow blood cultures 09/29/16: new issue n/v, get kub==> negative 09/30/16: asymptomatic, tolerated diet. D/w Family at bedside (they did not want to give me their name because they are upset but there are 2 sisters at bedside) , they really don't want to take home with them because they are in the process of moving. Although he served in the [employer] , he is not connected with benefits yet. Plan is to d/c with family and provide outpatient [facility]/PT. If he is not progressing with PT, they can inform the [facility] to try to get him benefits for inpatient rehab. Disposition: DC/[place]- HOME UNDER HOME [facility] Time spent for discharge: 34 minutes Core Measure Documentation - Palliative Care Palliative Care/ Comfort Measures: Not Applicable - Core Measures Any of the following diagnoses?: stroke - VTE Discharge Requirements Deep Vein Thrombosis/Pulmonary Embolism Present on Admission: No Has pt received <5 days of overlap therapy or INR<2.0: No Anticoagulant overlap therapy prescribed at discharge: No Contraindication No Overlap Therapy order at DC: Not Indicated - Stroke Discharge Requirements Statin for LDL = or >70 mg/dl on DC: Yes Anticoag for atrial fib/atrial flutter: Not Applicable Antithrombotic for ischemic stroke: Yes Exam - Physical Exam Narrative exam: GEN: WDWN, NAD, AWAKE, ALERT, ORIENTATED x 3 HEENT: NCAT, PERRL, EOMI, OP CLEAR NECK: SUPPLE, NO THYROMEGALY, NO JVD, NO LAD CVS: RRR, NORMAL S1S2 LUNGS/CHEST: CTA B, NORMAL CHEST EXPANSION B, GOOD AIR ENTRY B ABD: SOFT, NTND, GBS, NO REBOUND OR GUARDING EXT/SKIN: NO SIGNIFICANT EDEMA OR RASH, virtilgo scalp also MSK: Left side moving some with twitches, which is an improved. NEURO: CN 2-12 GROSSLY INTACT, left hemiparesis and dysarthria, NO NEW FOCAL DEFICITS PSY: calm - Constitutional Vitals: Temp Pulse Resp BP Pulse Ox 98.8 F 92 H 92 H 150/80 18 L 09/30/16 07:05 09/30/16 07:05 09/30/16 07:05 09/30/16 09:09/30/16 07:05 Plan Activity: other (no strenous activity until cleared by neurologist, no driving) Diet: low salt Special Instructions: physical therapy, occupational therapy, home health RN Follow up with: PRIMARY CARE, [Primary Care Provider] - 3-5 Days INDIO BESS MD [Staff Physician] - 7 Days Prescriptions: AtorvaSTATin [Lipitor] 80 mg PO QHS #30 day Aspirin [Aspirin BABY CHEW TAB] 81 mg PO DAILY #30 day Clopidogrel [Plavix] 75 mg PO QDAY #30 day Losartan [Cozaar] 50 mg PO QDAY #30 tablet NIFEdipine XL [Procardia Xl] 30 mg PO Q12HR #30 day
== END 2016-09-30 10:40 | disposition home health service (06) | DRG 64 ==
LOC: ED 08:23 → 4A 09:34 → 3A 09-21 21:49
PROVIDERS: ADMIT Internal Medicine; ATTEND Internal Medicine
DX: I63.9 Cerebral infarction, unspecified (principal); G93.40 Encephalopathy, unspecified; I10 Essential (primary) hypertension; E11.9 Type 2 diabetes mellitus without complications; K21.9 Gastro-esophageal reflux disease without esophagitis; E78.5 Hyperlipidemia, unspecified; Z60.2 Problems related to living alone; Z95.5 Presence of coronary angioplasty implant and graft; Z82.49 Family history of ischemic heart disease and other diseases of the circulatory system; R33.9 Retention of urine, unspecified; Z79.82 Long term (current) use of aspirin; K59.00 Constipation, unspecified
CPT/HCPCS: 36415; 70450; 70544; 70551; 71010; 74000; 80048; 80061; 81001; 82962; 84484; 85025; 85027; 85610; 85670; 85730; 87040; 87086; 93005; 93010; 93306; 94760; 96372; 96374; 96375; A9270-GY; J0360; J1630; J1650; J2060; J2250; J2405; J2704; J7030